=== PATIENT | male | born 1955 | race Caucasian/White ===

== ENCOUNTER 2016-11-29 13:56 | Emergency (ER) | payer OTHER ==
[2016-11-29] MEDS ORDERED: NS 1,000 ML IV ONE (14:14)
[2016-11-29] MEDS ORDERED: IOPAMIDOL (ISOVUE-300) 100 ML BTL IV ONE (14:27)
[2016-11-29] MEDS ORDERED: ONDANSETRON 4 MG/2 ML VIAL IVP ONE (14:33)
[2016-11-29] MEDS ORDERED: PROMETHAZINE HCL 25 MG/ML INJ IVP ONE (14:34)
--- NOTE | 2016-11-29 14:34 | EDPHY ---
H & P Stated Complaint: Pancreatitis flare up since 0600 Source: Patient, Old records Exam Limitations: No limitations - Personal History Current Tetanus/Diphtheria Vaccine: Yes Current Tetanus Diphtheria and Acellular Pertussis (TDAP): Yes Tetanus Vaccine Date: < 10 YEARS - Medical/Surgical History Hx Asthma: No Hx Chronic Respiratory Disease: No Hx Diabetes: No Hx Cardiac Disease: No Hx Renal Disease: No Hx Cirrhosis: Yes Hx Alcoholism: Yes Hx HIV/AIDS: No Hx Splenectomy or Spleen Trauma: No Other PMH: cyclic vomitting, HEP C/treatment completed, CHRONIC PANCREATITIS, AYDEE CONSTRICTURE, chronic back pain, TONSILLECTOMY, APPY, ORTHO SURGERY, CHOLECYSTECTOMY - Social History Smoking Status: Former smoker HPI/ROS: CHIEF COMPLAINT: abdominal pain, nausea vomiting HISTORY OF PRESENT ILLNESS: Patient reports 2-3 days history of epigastric abdominal pain. This is a moderate to severe pain. This is consistent with his history of chronic pancreatitis. Primarily in the epigastrium radiates across the upper quadrants. Worse with any palpation or movement. Worse with intake by mouth. No fever or chills. Nausea and vomiting. Diarrhea that resolved. No bloody stools or emesis. No trauma. Has a history of hepatitis C that has been treated. also has history of chronic pancreatitis of uncertain etiology. He denies any alcohol abuse. He denies hypertriglyceridemia. He denies any history of pancreatic pseudocyst. No other associated complaints or modifying factors. PREVIOUS ABDOMINAL SURGERIES/DIAGNOSES: Hep C status post treatment. Chronic pancreatitis. NPO: Last night, liquids only REVIEW OF SYSTEMS: Ten systems reviewed and are negative unless otherwise noted in the HPI EXAMINATION: General Appearance: Alert, no distress, unkempt Head: normocephalic, atraumatic Eyes: Pupils equal and round, no conjunctival pallor or injection ENT, Mouth: Mucous membranes moist. Uvula midline. No erythema or edema. Neck: Normal inspection, supple, non-tender Respiratory: Lungs are clear to auscultation . No wheezing, rhonchi or crackles. Cardiovascular: Regular rate and rhythm . No murmur. Pulses intact distally and symmetrically. Gastrointestinal: Abdomen is soft . Moderate tenderness to the epigastrium. Bowel sounds auscultated in all 4 quadrants.No tympany. No rigidity. He has guarding in the epigastrium. No CVA tenderness. Neurological: A&O, nonfocal, normal gait . Strength symmetric in all limbs. Skin: Warm and dry, no rash . No ecchymosis of the epigastrium or flanks. Extremities: Nontender, no pedal edema Psychiatric: Mood and affect normal DIFFERENTIAL DIAGNOSES: Including but not limited to Acute pancreatitis, chronic pancreatitis, enteritis, duodenitis, gastritis, colitis MDM: 2:20 p.m. abdominal pain consistent with the patient's history of chronic pancreatitis. Has worsened over the past few days. He has not been able to keep anything down. Constipation resolved. No bloody stools or emesis. No fever. No previous diagnosis of pancreatic pseudocyst. Laboratory studies, IV fluids and pain medication ordered. I will review his previous imaging further. 3:25 p.m. I have re-evaluated the patient. He is feeling much better after the IV morphine. Still receiving IV fluids. Laboratory studies are all within normal limits. Given his pain out of proportion to examination I will obtain a CT scan of the abdomen and pelvis to rule out pancreatitis or pseudocyst. He is comfortable with the plan. 3:50 p.m. notified by radiologist CT scan of the abdomen pelvis was unremarkable for evidence of pancreatitis. There is no pseudocyst. There is some fluid in the stomach. No obstruction. I will re-evaluate the patient. 4:05 p.m. I have re-evaluated the patient. He is feeling much better. I did offer admission for observation, IV fluid resuscitation. However he prefers to be discharged home. I do feel he is stable for discharge home as a CT scan reveals no acute findings, and laboratory studies are normal, this pain is improved. Upon discharge home is instructed to remain NPO of solids, and to intake water only this evening. He is to return to emergency department for return of his pain, any fever, or vomiting over the evening. Patient is comfortable with this plan. I have answered all his questions, and he will be discharged home in stable condition. ED Precautions: Worsening pain. Fever. Bloody stools. Bloody emesis. Constipation or diarrhea. SUPERVISION: This patient was independently evaluated without the aide of supervising physician. (Jefry Mojica) Constitutional: Initial Vital Signs Temperature (C) 37 C 11/29/16 13:57 Heart Rate 60 11/29/16 13:57 Respiratory Rate 18 11/29/16 13:57 Blood Pressure 166/75 H 11/29/16 13:57 O2 Sat (%) 94 11/29/16 13:57 O2 Delivery Mode Nasal Cannula O2 (L/minute) 2 Allergies/Adverse Reactions: codeine Allergy (Severe, Verified 03/12/16 14:29) Vomiting hydrocodone Allergy (Severe, Verified 03/12/16 14:29) Vomiting oxycodone [Oxycodone] Allergy (Severe, Verified 03/12/16 14:29) Vomiting clonazepam Allergy (Verified 11/29/16 14:01) tizanidine Allergy (Verified 11/29/16 14:01) topiramate Allergy (Verified 11/29/16 14:01) Home Medications: Medication Instructions Recorded Butalb/Acetaminophen/Caffeine 11/29/16 Dilaudid 4 mg (*) 11/29/16 GABAPENTIN 11/29/16 HYOSCYAMINE SULFATE 11/29/16 Ondansetron Odt [Zofran Odt 4 mg 4 mg PO Q6 PRN #12 tab 11/29/16 (*)] Promethazine HCl [Phenergan 25mg 25 mg PO Q8 PRN #12 tab 11/29/16 (*)] Medical Decision Making Other Provider: PHYSICIAN DOCUMENTATION: The patient was evaluated and managed by the Physician Team Facilitator. My co- signature indicates that I have reviewed this chart and I agree with the findings and plan of care as documented. I am the secondary supervising physician. (Amauri Dawson) - Data Points Laboratory Results: Laboratory Results 11/29/16 14:28 11/29/16 14:28 11/29/16 11/29/16 11/29/16 14:28 14:28 14:28 WBC 9.25 10^3/uL 10^3/uL (3.80-9.50) RBC 5.17 10^6/uL 10^6/uL (4.40-6.38) Hgb 16.5 g/dL g/dL (13.7-17.5) Hct 46.5 % % (40.0-51.0) MCV 89.9 fL fL (81.5-99.8) MCH 31.9 pg pg (27.9-34.1) MCHC 35.5 g/dL g/dL (32.4-36.7) RDW 12.3 % % (11.5-15.2) Plt Count 244 10^3/uL 10^3/uL (150-400) MPV 9.2 fL fL (8.7-11.7) Neut % (Auto) 89.7 % H % (39.3-74.2) Lymph % (Auto) 7.0 % L % (15.0-45.0) [place] % (Auto) 2.3 % L % (4.5-13.0) Eos % (Auto) 0.3 % L % (0.6-7.6) Baso % (Auto) 0.3 % % (0.3-1.7) Nucleat RBC Rel Count 0.0 % % (0.0-0.2) Absolute Neuts (auto) 8.29 10^3/uL H 10^3/uL (1.70-6.50) Absolute Lymphs (auto) 0.65 10^3/uL L 10^3/uL (1.00-3.00) Absolute Monos (auto) 0.21 10^3/uL L 10^3/uL (0.30-0.80) Absolute Eos (auto) 0.03 10^3/uL 10^3/uL (0.03-0.40) Absolute Basos (auto) 0.03 10^3/uL 10^3/uL (0.02-0.10) Absolute Nucleated RBC 0.00 10^3/uL 10^3/uL (0-0.01) Immature Gran % 0.4 % % (0.0-1.1) Immature Gran # 0.04 10^3/uL 10^3/uL (0.00-0.10) PT 14.1 SEC SEC (12.0-15.0) INR 1.10 (0.83-1.16) APTT 28.9 SEC SEC (23.0-38.0) Sodium 142 mEq/L mEq/L (134-144) Potassium 4.5 mEq/L mEq/L (3.5-5.2) Chloride 105 mEq/L mEq/L (97-110) Carbon Dioxide 23 mEq/l mEq/l (22-31) Anion Gap 14 mEq/L mEq/L (8-16) BUN 20 mg/dL mg/dL (7-23) Creatinine 0.9 mg/dL mg/dL (0.7-1.3) Estimated GFR > 60 Glucose 128 mg/dL H mg/dL (70-100) Calcium 10.0 mg/dL mg/dL (8.5-10.4) Total Bilirubin 1.0 mg/dL mg/dL (0.1-1.4) Conjugated Bilirubin 0.5 mg/dL mg/dL (0.0-0.5) Unconjugated Bilirubin 0.5 mg/dL mg/dL (0.0-1.1) AST 27 IU/L IU/L (17-59) ALT 22 IU/L IU/L (21-72) Alkaline Phosphatase 82 IU/L IU/L (38-126) Total Protein 8.0 g/dL g/dL (6.3-8.2) Albumin 4.8 g/dL g/dL (3.5-5.0) Lipase 37.0 IU/L IU/L (23-300) Medications Given: Discontinued Medications Sodium Chloride (Ns) 1,000 mls @ 0 mls/hr IV ONCE ONE PRN Reason: Wide Open Stop: 11/29/16 14:15 Last Admin: 11/29/16 14:33 Dose: 1,000 mls Morphine Sulfate (Morphine) 8 mg IVP EDNOW ONE Stop: 11/29/16 14:34 Last Admin: 11/29/16 15:04 Dose: 8 mg Morphine Sulfate (Morphine) 4 mg IVP EDNOW ONE Stop: 11/29/16 16:03 Last Admin: 11/29/16 16:12 Dose: 4 mg Ondansetron HCl (Zofran) 4 mg IVP EDNOW ONE Stop: 11/29/16 14:34 Last Admin: 11/29/16 15:04 Dose: 4 mg Promethazine HCl (Phenergan) 12.5 mg IVP ONCE ONE Stop: 11/29/16 14:35 Last Admin: 11/29/16 15:03 Dose: 12.5 mg Departure - Departure Disposition: Home, Routine, Self-Care Clinical Impression: Acute abdominal pain Chronic pancreatitis Qualifiers: Pancreatitis type: unspecified pancreatitis type Qualified Code(s): K86.1 - Other chronic pancreatitis Nausea & vomiting Qualifiers: Vomiting type: unspecified Vomiting Intractability: non-intractable Qualified Code(s): R11.2 - Nausea with vomiting, unspecified Condition: Good Instructions: Pancreatitis (ED) Additional Instructions: Follow-up with primary care physician. Return to ER for fever, return of abdominal pain, vomiting Referrals: John Xiao MD [Primary Care Provider] - As per Instructions Prescriptions: Ondansetron Odt [Zofran Odt 4 mg (*)] 4 mg PO Q6 PRN #12 tab PRN Reason: Nausea/Vomiting, Use 1st Promethazine HCl [Phenergan 25mg (*)] 25 mg PO Q8 PRN #12 tab PRN Reason: Nausea/Vomiting, Use 1st
[2016-11-29 14:45] LABS: % IMMATURE GRANULYOCYTES 0.4 % (0.0-1.1); ABSOLUTE IMMATURE GRANULOCYTES 0.04 10^3/uL (0.00-0.10); ADD DIFF? NO; ADD MORPH? NO; ADD SCAN? NO; ATYPICAL LYMPHOCYTE FLAG 0 (0-99); FRAGMENT RBC FLAG 0 (0-99); HEMATOCRIT 46.5 % (40.0-51.0); HEMOGLOBIN 16.5 g/dL (13.7-17.5); LEFT SHIFT FLG 0 (0-99); LIPEMIA HEMOLYSIS FLAG 90 (0-99); MEAN CELL HEMOGLOBIN 31.9 pg (27.9-34.1); MEAN CELL HEMOGLOBIN CONCENTR. 35.5 g/dL (32.4-36.7); MEAN CELL VOLUME 89.9 fL (81.5-99.8); MEAN PLATELET VOLUME 9.2 fL (8.7-11.7); PLATELET CLUMPS FLAG 0 (0-99); PLATELET COUNT 244 10^3/uL (150-400); RED BLOOD CELL COUNT 5.17 10^6/uL (4.40-6.38); RED CELL DISTRIBUTION WIDTH 12.3 % (11.5-15.2)
[2016-11-29 14:53] LABS: APTT 28.9 SEC (23.0-38.0); INR 1.1 (0.83-1.16); PROTIME(PATIENT) 14.1 SEC (12.0-15.0)
[2016-11-29 15:06] LABS: ALANINE AMINOTRANSFERASE 22 IU/L (21-72); ALBUMIN 4.8 g/dL (3.5-5.0); ALKALINE PHOSPHATASE 82 IU/L (38-126); ANION GAP 14 mEq/L (8-16); ASPARTATE AMINOTRANSFERASE 27 IU/L (17-59); BILIRUBIN-CONJUGATED 0.5 mg/dL (0.0-0.5); BILIRUBIN-UNCONJUGATED 0.5 mg/dL (0.0-1.1); CARBON DIOXIDE 23 mEq/l (22-31); CHLORIDE 105 mEq/L (97-110); CREATININE 0.9 mg/dL (0.7-1.3); GLOMERULAR FILTRATION RATE > 60; GLUCOSE 128 mg/dL (70-100); POTASSIUM 4.5 mEq/L (3.5-5.2); SODIUM 142 mEq/L (134-144)
[2016-11-29 16:04] VITALS: RESP 16; O2SAT 94
[2016-11-29 17:04] VITALS: BP 131/68; PULSE 71; TEMP 99
== END 2016-11-29 17:04 | disposition home or self-care (01) ==
DX: K86.1 Other chronic pancreatitis (principal); Z87.891 Personal history of nicotine dependence; Z90.49 Acquired absence of other specified parts of digestive tract
CPT/HCPCS: 96374; J2405; J2550; Q9967

== ENCOUNTER 2017-01-19 09:54 | Emergency (ER) | payer OTHER ==
[~2017-01-19 09:54] MED LIST: HYDROmorphONE/DILAUDID 1 MG/ML SYR IVP ONE
[2017-01-19] MEDS ORDERED: ONDANSETRON 4 MG/2 ML VIAL ONE (10:17)
[2017-01-19] MEDS ORDERED: ONDANSETRON 4 MG/2 ML VIAL IVP ONE (10:26)
[2017-01-19] MEDS ORDERED: NS 1,000 ML IV ONE (10:26)
[2017-01-19] MEDS ORDERED: HYDROmorphONE/DILAUDID 1 MG/ML SYR IVP ONE ×2 (10:35→11:50)
[2017-01-19] MEDS ORDERED: HALOPERIDOL LACT 5 MG/ML INJ IVP ONE (10:36)
[2017-01-19 10:58] LABS: % IMMATURE GRANULYOCYTES 0.2 % (0.0-1.1); ABSOLUTE IMMATURE GRANULOCYTES 0.02 10^3/uL (0.00-0.10); ADD DIFF? NO; ADD MORPH? NO; ADD SCAN? NO; ATYPICAL LYMPHOCYTE FLAG 10 (0-99); FRAGMENT RBC FLAG 0 (0-99); HEMATOCRIT 48.8 % (40.0-51.0); HEMOGLOBIN 16.8 g/dL (13.7-17.5); LEFT SHIFT FLG 10 (0-99); LIPEMIA HEMOLYSIS FLAG 90 (0-99); MEAN CELL HEMOGLOBIN 30.7 pg (27.9-34.1); MEAN CELL HEMOGLOBIN CONCENTR. 34.4 g/dL (32.4-36.7); MEAN CELL VOLUME 89.1 fL (81.5-99.8); MEAN PLATELET VOLUME 9.7 fL (8.7-11.7); PLATELET CLUMPS FLAG 0 (0-99); PLATELET COUNT 218 10^3/uL (150-400); RED BLOOD CELL COUNT 5.48 10^6/uL (4.40-6.38); RED CELL DISTRIBUTION WIDTH 12.3 % (11.5-15.2)
[2017-01-19 11:14] LABS: ALANINE AMINOTRANSFERASE 35 IU/L (21-72); ALBUMIN 4.7 g/dL (3.5-5.0); ALKALINE PHOSPHATASE 106 IU/L (38-126); ANION GAP 9 mEq/L (8-16); ASPARTATE AMINOTRANSFERASE 24 IU/L (17-59); BILIRUBIN,TOTAL 0.8 mg/dL (0.1-1.4); BILIRUBIN-CONJUGATED 0.3 mg/dL (0.0-0.5); BILIRUBIN-UNCONJUGATED 0.5 mg/dL (0.0-1.1); CALCIUM 10.2 mg/dL (8.5-10.4); CARBON DIOXIDE 23 mEq/l (22-31); CHLORIDE 107 mEq/L (97-110); CREATININE 0.9 mg/dL (0.7-1.3); GLOMERULAR FILTRATION RATE > 60; GLUCOSE 126 mg/dL (70-100); POTASSIUM 4.5 mEq/L (3.5-5.2); SODIUM 139 mEq/L (134-144)
[2017-01-19] MEDS ORDERED: HYDROmorphONE/DILAUDID 1 MG/ML SYR ONE ×2 (11:45→11:58)
--- NOTE | 2017-01-19 12:16 | EDPHY ---
H & P Stated Complaint: ight sided abdominal pain. Cyclic vomiting. Time Seen by Provider: 01/19/17 10:11 HPI/ROS: CHIEF COMPLAINT: Abdominal pain HISTORY OF PRESENT ILLNESS: 61-year-old male presents emergency department with acute on chronic epigastric abdominal pain with nausea and vomiting. Patient has a history of chronic pancreatitis and cyclic vomiting syndrome. He sees a folding machine tender regularly and Dr. Xiao. Patient has a cocktail medications that usually helps his symptoms at home although this morning he could not keep them down. Patient reports there is nothing new about his pain, he denies fevers. No diarrhea. No blood in his vomit. No bloody stools. Patient has a history of hepatitis C that has been treated. He denies alcohol abuse. No other associated complaints or modifying factors. REVIEW OF SYSTEMS: A comprehensive 10 point review of systems is otherwise negative aside from elements mentioned in the history of present illness. Source: Patient Exam Limitations: No limitations - Personal History Current Tetanus/Diphtheria Vaccine: Yes Current Tetanus Diphtheria and Acellular Pertussis (TDAP): Yes Tetanus Vaccine Date: < 10 YEARS - Medical/Surgical History Hx Asthma: No Hx Chronic Respiratory Disease: No Hx Diabetes: No Hx Cardiac Disease: No Hx Renal Disease: No Hx Cirrhosis: Yes Hx Alcoholism: Yes Hx HIV/AIDS: No Hx Splenectomy or Spleen Trauma: No Other PMH: cyclic vomitting, HEP C/treatment completed, CHRONIC PANCREATITIS, AYDEE CONSTRICTURE, chronic back pain, TONSILLECTOMY, APPY, ORTHO SURGERY, CHOLECYSTECTOMY - Social History Smoking Status: Former smoker - Physical Exam Exam: Physical Exam Gen: Alert and Oriented, grimacing HEENT: PERRL, moist mucous membranes NECK: no meningismus CV: regular rate and regular rhythm PULM: CTAB, no wheezes ABDOMEN: Soft, mild diffuse tenderness to palpation, BS present BACK: No CVA tenderness NEURO: Neurologically grossly intact EXTREMITIES: normal appearing SKIN: no rash or break in skin on exposed skin PSYCH: answers questions appropriately. Constitutional: Initial Vital Signs Temperature (C) 36.6 C 01/19/17 09:56 Heart Rate 41 L 01/19/17 09:56 Respiratory Rate 14 01/19/17 09:56 Blood Pressure 152/84 H 01/19/17 09:56 O2 Sat (%) 99 01/19/17 09:56 O2 Delivery Mode Room Air Allergies/Adverse Reactions: codeine Allergy (Severe, Verified 03/12/16 14:29) Vomiting hydrocodone Allergy (Severe, Verified 03/12/16 14:29) Vomiting oxycodone [Oxycodone] Allergy (Severe, Verified 03/12/16 14:29) Vomiting clonazepam Allergy (Verified 11/29/16 14:01) tizanidine Allergy (Verified 11/29/16 14:01) topiramate Allergy (Verified 11/29/16 14:01) Home Medications: Medication Instructions Recorded Butalb/Acetaminophen/Caffeine 11/29/16 Dilaudid 4 mg (*) 11/29/16 GABAPENTIN 11/29/16 HYOSCYAMINE SULFATE 11/29/16 Ondansetron Odt [Zofran Odt 4 mg 4 mg PO Q6 PRN #12 tab 11/29/16 (*)] Promethazine HCl [Phenergan 25mg 25 mg PO Q8 PRN #12 tab 11/29/16 (*)] Promethazine HCl 25 mg RC Q8HRS PRN #10 supp.rect 01/19/17 Medical Decision Making ED Course/Re-evaluation: IV established, CBC, chemistry panel, lipase and LFTs ordered. Patient is given Zofran and 1 mg of IV Dilaudid. On re-evaluation the patient continues with nausea and abdominal pain. He is given 5 mg of Haldol and 25 mg of Benadryl IV. He is also given a 2nd mg of Dilaudid. On re-evaluation the patient reports feeling much improved. He does feel like his pain is beginning to worsened a bit, he is given another dose of IV Dilaudid. Repeat abdominal exam shows no peritoneal signs. Patient reports feeling better and feels comfortable being discharged home. I did offer admission to the hospital in the patient reports he would rather manage this at home. He agrees to return for any worsening symptoms, new symptoms or concerns. Patient is discharged home with a prescription for Phenergan suppositories. Differential Diagnosis: The differential diagnosis for the patient's abdominal pain included but was not limited to [appendicitis, cholecystitis, hernias, Pancreatitis, cyclic vomiting syndrome, gastritis, and urinary tract infection. - Data Points Laboratory Results: Laboratory Results 01/19/17 Unknown 01/19/17 Unknown 04/21/17 04/21/17 Unknown Unknown WBC 8.63 10^3/uL 10^3/uL (3.80-9.50) RBC 5.48 10^6/uL 10^6/uL (4.40-6.38) Hgb 16.8 g/dL g/dL (13.7-17.5) Hct 48.8 % % (40.0-51.0) MCV 89.1 fL fL (81.5-99.8) MCH 30.7 pg pg (27.9-34.1) MCHC 34.4 g/dL g/dL (32.4-36.7) RDW 12.3 % % (11.5-15.2) Plt Count 218 10^3/uL 10^3/uL (150-400) MPV 9.7 fL fL (8.7-11.7) Neut % (Auto) 79.3 % H % (39.3-74.2) Lymph % (Auto) 11.8 % L % (15.0-45.0) [place] % (Auto) 5.1 % % (4.5-13.0) Eos % (Auto) 2.9 % % (0.6-7.6) Baso % (Auto) 0.7 % % (0.3-1.7) Nucleat RBC Rel Count 0.0 % % (0.0-0.2) Absolute Neuts (auto) 6.84 10^3/uL H 10^3/uL (1.70-6.50) Absolute Lymphs (auto) 1.02 10^3/uL 10^3/uL (1.00-3.00) Absolute Monos (auto) 0.44 10^3/uL 10^3/uL (0.30-0.80) Absolute Eos (auto) 0.25 10^3/uL 10^3/uL (0.03-0.40) Absolute Basos (auto) 0.06 10^3/uL 10^3/uL (0.02-0.10) Absolute Nucleated RBC 0.00 10^3/uL 10^3/uL (0-0.01) Immature Gran % 0.2 % % (0.0-1.1) Immature Gran # 0.02 10^3/uL 10^3/uL (0.00-0.10) Sodium 139 mEq/L mEq/L (134-144) Potassium 4.5 mEq/L mEq/L (3.5-5.2) Chloride 107 mEq/L mEq/L (97-110) Carbon Dioxide 23 mEq/l mEq/l (22-31) Anion Gap 9 mEq/L mEq/L (8-16) BUN 18 mg/dL mg/dL (7-23) Creatinine 0.9 mg/dL mg/dL (0.7-1.3) Estimated GFR > 60 Glucose 126 mg/dL H mg/dL (70-100) Calcium 10.2 mg/dL mg/dL (8.5-10.4) Total Bilirubin 0.8 mg/dL mg/dL (0.1-1.4) Conjugated Bilirubin 0.3 mg/dL mg/dL (0.0-0.5) Unconjugated Bilirubin 0.5 mg/dL mg/dL (0.0-1.1) AST 24 IU/L IU/L (17-59) ALT 35 IU/L IU/L (21-72) Alkaline Phosphatase 106 IU/L IU/L (38-126) Total Protein 8.0 g/dL g/dL (6.3-8.2) Albumin 4.7 g/dL g/dL (3.5-5.0) Lipase 181.0 IU/L IU/L (23-300) Medications Given: Discontinued Medications Diphenhydramine HCl (Benadryl Injection) 25 mg IVP EDNOW ONE Stop: 01/19/17 10:37 Last Admin: 01/19/17 10:42 Dose: 25 mg Haloperidol Lactate (Haldol Injection) 5 mg IVP EDNOW ONE Stop: 01/19/17 10:37 Last Admin: 01/19/17 10:42 Dose: 5 mg Hydromorphone HCl (Dilaudid) 1 mg IVP EDNOW ONE Stop: 01/19/17 10:36 Last Admin: 01/19/17 10:41 Dose: 1 mg Hydromorphone HCl (Dilaudid) 1 mg IVP EDNOW ONE Stop: 01/19/17 08:01 Last Admin: 01/19/17 11:50 Dose: 1 mg Hydromorphone HCl (Dilaudid) 1 mg IVP EDNOW ONE Stop: 01/19/17 11:51 Last Admin: 01/19/17 12:00 Dose: 1 mg Sodium Chloride (Ns) 1,000 mls @ 0 mls/hr IV ONCE ONE PRN Reason: Wide Open Stop: 01/19/17 10:27 Last Admin: 01/19/17 10:27 Dose: 1,000 mls Ondansetron HCl (Zofran) 4 mg IVP EDNOW ONE Stop: 01/19/17 10:27 Last Admin: 01/19/17 10:28 Dose: 4 mg Departure - Departure Disposition: Home, Routine, Self-Care Clinical Impression: Abdominal pain, chronic, right upper quadrant Nausea & vomiting Qualifiers: Vomiting type: cyclical vomiting Vomiting Intractability: non-intractable Qualified Code(s): G43.A0 - Cyclical vomiting, not intractable Condition: Good Instructions: Chronic Abdominal Pain (ED) Additional Instructions: Take your medications as prescribed. Follow up as scheduled with the folding machine tender. Return to the emergency department for worsening symptoms, new symptoms or concerns. Referrals: John Xiao MD [Primary Care Provider] - As per Instructions Prescriptions: Promethazine HCl 25 mg RC Q8HRS PRN #10 supp.rect PRN Reason: Nausea/Vomiting, Can'T Take Po
[2017-01-19 13:05] VITALS: RESP 18
[2017-01-19 14:04] VITALS: BP 143/64; PULSE 75; TEMP 98.6; O2SAT 96
== END 2017-01-19 14:02 | disposition home or self-care (01) ==
DX: R10.11 Right upper quadrant pain (principal); G89.29 Other chronic pain; G43.A0 Cyclical vomiting, in migraine, not intractable; Z87.891 Personal history of nicotine dependence; Z90.49 Acquired absence of other specified parts of digestive tract
CPT/HCPCS: 96374; J1170; J1200; J2405

== ENCOUNTER 2017-02-07 19:47 | Inpatient (IN) | payer OTHER ==
[2017-02-07] MEDS ORDERED: ONDANSETRON 4 MG/2 ML VIAL ONE (20:10)
[2017-02-07] MEDS ORDERED: HYDROmorphONE/DILAUDID 1 MG/ML SYR ONE (20:11)
[2017-02-07] MEDS ORDERED: NS 1,000 ML IV ONE ×2 (20:14→20:28)
[2017-02-07] MEDS ORDERED: HYDROmorphONE/DILAUDID 1 MG/ML SYR IVP ONE ×2 (20:19→20:42)
[2017-02-07] MEDS ORDERED: ONDANSETRON 4 MG/2 ML VIAL IVP ONE (20:19)
--- NOTE | 2017-02-07 20:22 | EDPHY ---
H & P Time Seen by Provider: 02/07/17 20:18 HPI/ROS: CHIEF COMPLAINT: Abdominal pain, vomiting HISTORY OF PRESENT ILLNESS: This patient is a 61 year old male with history of cyclic vomiting and pancreatitis who presents to the Emergency Department complaining of intermittent epigastric and RUQ abdominal pain and associated nausea and vomiting beginning one week prior to arrival. He had labs drawn by his PCP on last week confirmed acute exacerbation of his chronic pancreatitis. Today, he presents to the ED because of intractable vomiting and severe (10/10) pain. He describes this episode as similar to prior exacerbations of his pancreatitis. He denies bowel changes, fever or chills, or any additional complaints. REVIEW OF SYSTEMS: Constitutional: +rapid weight loss, no fever, no chills Eyes: No visual changes ENT: No sore throat Respiratory: No cough, no shortness of breath Cardiac: No chest pain Gastrointestinal: As above Genitourinary: No hematuria, no dysuria Musculoskeletal: No leg pain or swelling Skin: No rash Neurological: No headache, no numbness, no weakness Psychiatric: No depression Past Medical/Surgical History: Prior medical records reviewed by myself, including most recent visit for same complaint on 01/19/2017. PMH includes: Chronic pancreatitis, cyclic vomiting, history of hepatitis C Social History: Former smoker Smoking Status: Former smoker Physical Exam: General Appearance: Alert, no distress Eyes: Pupils equal and round, no conjunctival pallor or injection ENT, Mouth: Mucous membranes moist Neck: Normal inspection Respiratory: Lungs are clear to auscultation Cardiovascular: Regular rate and rhythm Gastrointestinal: Abdomen is soft, RUQ and epigastric tenderness Neurological: A&O, nonfocal, normal gait Skin: Warm and dry, no rash Extremities: Nontender, no pedal edema Psychiatric: Mood and affect normal Constitutional: Initial Vital Signs Temperature (C) 37.7 C 02/07/17 19:59 Heart Rate 83 02/07/17 19:59 Respiratory Rate 16 02/07/17 19:59 Blood Pressure 140/59 H 02/07/17 19:59 O2 Sat (%) 95 02/07/17 19:59 O2 Delivery Mode Room Air Allergies/Adverse Reactions: codeine Allergy (Severe, Verified 03/12/16 14:29) Vomiting hydrocodone Allergy (Severe, Verified 03/12/16 14:29) Vomiting oxycodone [Oxycodone] Allergy (Severe, Verified 03/12/16 14:29) Vomiting clonazepam Allergy (Verified 11/29/16 14:01) tizanidine Allergy (Verified 11/29/16 14:01) topiramate Allergy (Verified 11/29/16 14:01) Home Medications: Medication Instructions Recorded Acet/Caffeine/Buta Fioricet 1 - 2 each PO Q4 PRN MDD 4 tabs in 02/07/17 [Fioricet (*)] 24 hours Calcium Carbonate [Calcium] 1,000 mg PO DAILY 02/07/17 Diazepam [Valium 10 MG (*)] 10 mg PO HS PRN 02/07/17 Duloxetine HCl [Cymbalta] 30 mg PO DAILY 02/07/17 Gabapentin [Neurontin 300 MG (*)] 600 mg PO HS 02/07/17 HYDROmorphone HCL [Dilaudid 4 mg 2 - 4 mg PO Q4-6PRN PRN 02/07/17 (*)] Herbals/Supplements -Info Only 1 ea PO DAILY 02/07/17 LORAZEPAM [Ativan] 1 ml PO BID PRN MDD 45cc per month 02/07/17 Magnesium Oxide [Magnesium Oxide 500 mg PO DAILY 02/07/17 500 mg] Naloxone HCl 1 mg IJ AD PRN 02/07/17 Ondansetron Odt [Zofran Odt 4 mg 4 - 8 mg PO Q8H PRN 02/07/17 (*)] Promethazine HCl [Phenergan 25mg 25 mg PO BID PRN 02/07/17 (*)] Tamsulosin HCl [Flomax 0.4 MG (*)] 0.4 mg PO DAILY 02/07/17 rOPINIRole HCL [Ropinirole HCl] 4 - 12 mg PO HS PRN 02/07/17 Medical Decision Making ED Course/Re-evaluation: This 61 [id number] presents with [id number] pancreatitis as confirmed by labs yesterday with lipase elevated at 1025. He complains of severe RUQ and epigastric pain with intractable vomiting, a similar presentation to previous visits for pancreatitis. Will proceed with repeat labs and plan for admission. IV established. 2mg Dilaudid, 4mg Zofran, and 2L IV NS administered. Labs reviewed: Lipase within normal limits today. 2108: On reevaluation, the patient continues to complain of abdominal discomfort at severity 9/10. He is mildly drowsy. Plan for admission. 40mg IV Protonix administered. 2110: Consultation with Dr. Lu Nevarez, hospitalist, who accepts admission. Abdominal exam remains unchanged. I suspect this patient has a pancreatitis, given elevated lipase yesterday. In any case, he does not have an acute abdomen and abdominal imaging is not indicated in this patient. Differential Diagnosis: Differential diagnosis includes though it is not limited to appendicitis, cholecystitis, diverticulitis, pyelonephritis, bowel perforation, small bowel obstruction. - Data Points Laboratory Results: Laboratory Results 02/07/17 20:10 02/07/17 20:10 02/07/17 02/07/17 20:10 20:10 WBC 6.28 10^3/uL 10^3/uL (3.80-9.50) RBC 5.05 10^6/uL 10^6/uL (4.40-6.38) Hgb 15.9 g/dL g/dL (13.7-17.5) Hct 45.2 % % (40.0-51.0) MCV 89.5 fL fL (81.5-99.8) MCH 31.5 pg pg (27.9-34.1) MCHC 35.2 g/dL g/dL (32.4-36.7) RDW 12.5 % % (11.5-15.2) Plt Count 204 10^3/uL 10^3/uL (150-400) MPV 9.5 fL fL (8.7-11.7) Neut % (Auto) 86.0 % H % (39.3-74.2) Lymph % (Auto) 8.3 % L % (15.0-45.0) [place] % (Auto) 4.8 % % (4.5-13.0) Eos % (Auto) 0.2 % L % (0.6-7.6) Baso % (Auto) 0.2 % L % (0.3-1.7) Nucleat RBC Rel Count 0.0 % % (0.0-0.2) Absolute Neuts (auto) 5.41 10^3/uL 10^3/uL (1.70-6.50) Absolute Lymphs (auto) 0.52 10^3/uL L 10^3/uL (1.00-3.00) Absolute Monos (auto) 0.30 10^3/uL 10^3/uL (0.30-0.80) Absolute Eos (auto) 0.01 10^3/uL L 10^3/uL (0.03-0.40) Absolute Basos (auto) 0.01 10^3/uL L 10^3/uL (0.02-0.10) Absolute Nucleated RBC 0.00 10^3/uL 10^3/uL (0-0.01) Immature Gran % 0.5 % % (0.0-1.1) Immature Gran # 0.03 10^3/uL 10^3/uL (0.00-0.10) Sodium 141 mEq/L mEq/L (134-144) Potassium 4.1 mEq/L mEq/L (3.5-5.2) Chloride 106 mEq/L mEq/L (97-110) Carbon Dioxide 23 mEq/l mEq/l (22-31) Anion Gap 12 mEq/L mEq/L (8-16) BUN 15 mg/dL mg/dL (7-23) Creatinine 0.8 mg/dL mg/dL (0.7-1.3) Estimated GFR > 60 Glucose 120 mg/dL H mg/dL (70-100) Calcium 9.8 mg/dL mg/dL (8.5-10.4) Total Bilirubin 0.9 mg/dL D mg/dL (0.1-1.4) Conjugated Bilirubin 0.4 mg/dL mg/dL (0.0-0.5) Unconjugated Bilirubin 0.5 mg/dL mg/dL (0.0-1.1) AST 33 IU/L IU/L (17-59) ALT 42 IU/L IU/L (21-72) Alkaline Phosphatase 91 IU/L IU/L (38-126) Total Protein 7.2 g/dL g/dL (6.3-8.2) Albumin 4.5 g/dL g/dL (3.5-5.0) Lipase 169.0 IU/L IU/L (23-300) Medications Given: Discontinued Medications Hydromorphone HCl (Dilaudid) 1 mg IVP EDNOW ONE Stop: 02/07/17 20:20 Last Admin: 02/07/17 20:22 Dose: 1 mg Hydromorphone HCl (Dilaudid) 1 mg IVP EDNOW ONE Stop: 02/07/17 20:43 Last Admin: 02/07/17 21:12 Dose: Not Given Sodium Chloride (Ns) 1,000 mls @ 0 mls/hr IV ONCE ONE PRN Reason: Wide Open Stop: 02/07/17 20:15 Last Admin: 02/07/17 20:15 Dose: 1,000 mls Sodium Chloride (Ns) 1,000 mls @ 0 mls/hr IV ONCE ONE PRN Reason: Wide Open Stop: 02/07/17 20:29 Last Admin: 02/07/17 20:39 Dose: 1,000 mls Ondansetron HCl (Zofran) 4 mg IVP EDNOW ONE Stop: 02/07/17 20:20 Last Admin: 02/07/17 20:22 Dose: 4 mg Pantoprazole Sodium (Protonix) 40 mg IVP EDNOW ONE Stop: 02/07/17 21:09 Last Admin: 02/07/17 21:24 Dose: 40 mg Departure - Departure Disposition: [facility] Inpatient Acute Clinical Impression: Pancreatitis, acute Qualifiers: Pancreatitis type: other Acute pancreatitis complication: unspecified Qualified Code(s): K85.80 - Other acute pancreatitis without necrosis or infection Condition: Fair Report Scribed for: Anastacia Stewart Report Scribed by: Anuja Soria Date of Report: 02/07/17 Time of Report: 20:21 Physician Review and Approval Statement: 02/07/17 20:21 Portions of this note were transcribed by a medical records assistant. I personally performed a history, physical exam, medical decision making, and confirmed accuracy of information the transcribed note.
[2017-02-07 20:35] LABS: % IMMATURE GRANULYOCYTES 0.5 % (0.0-1.1); ABSOLUTE IMMATURE GRANULOCYTES 0.03 10^3/uL (0.00-0.10); ADD DIFF? NO; ADD MORPH? NO; ADD SCAN? NO; ATYPICAL LYMPHOCYTE FLAG 0 (0-99); FRAGMENT RBC FLAG 0 (0-99); HEMATOCRIT 45.2 % (40.0-51.0); HEMOGLOBIN 15.9 g/dL (13.7-17.5); LEFT SHIFT FLG 10 (0-99); LIPEMIA HEMOLYSIS FLAG 90 (0-99); MEAN CELL HEMOGLOBIN 31.5 pg (27.9-34.1); MEAN CELL HEMOGLOBIN CONCENTR. 35.2 g/dL (32.4-36.7); MEAN CELL VOLUME 89.5 fL (81.5-99.8); MEAN PLATELET VOLUME 9.5 fL (8.7-11.7); PLATELET CLUMPS FLAG 0 (0-99); PLATELET COUNT 204 10^3/uL (150-400); RED BLOOD CELL COUNT 5.05 10^6/uL (4.40-6.38); RED CELL DISTRIBUTION WIDTH 12.5 % (11.5-15.2)
[2017-02-07 20:45] LABS: ALANINE AMINOTRANSFERASE 42 IU/L (21-72); ALBUMIN 4.5 g/dL (3.5-5.0); ALKALINE PHOSPHATASE 91 IU/L (38-126); ANION GAP 12 mEq/L (8-16); ASPARTATE AMINOTRANSFERASE 33 IU/L (17-59); BILIRUBIN,TOTAL 0.9 mg/dL (0.1-1.4); BILIRUBIN-CONJUGATED 0.4 mg/dL (0.0-0.5); BILIRUBIN-UNCONJUGATED 0.5 mg/dL (0.0-1.1); CALCIUM 9.8 mg/dL (8.5-10.4); CARBON DIOXIDE 23 mEq/l (22-31); CHLORIDE 106 mEq/L (97-110); CREATININE 0.8 mg/dL (0.7-1.3); GLOMERULAR FILTRATION RATE > 60; GLUCOSE 120 mg/dL (70-100); POTASSIUM 4.1 mEq/L (3.5-5.2); SODIUM 141 mEq/L (134-144); TOTAL PROTEIN 7.2 g/dL (6.3-8.2)
[2017-02-07] MEDS ORDERED: fentaNYL 100 MCG/2 ML INJ ONE (20:58)
[2017-02-07] MEDS ORDERED: PANTOPRAZOLE SODIUM 40 MG VIAL IVP ONE (21:08)
[2017-02-07] MEDS ORDERED: ONDANSETRON 4 MG/2 ML VIAL IVP PRN (21:46)
[2017-02-07] MEDS ORDERED: ACETAMINOPHEN 325 MG TAB PO PRN (21:46)
[2017-02-07] MEDS ORDERED: LORazepam 1 MG TAB PO PRN (22:15)
[2017-02-07] MEDS ORDERED: LORazepam 1 MG/0.5 ML UDSYR PO PRN (22:15)
[2017-02-07] MEDS: DIAZEPAM 5 MG TAB PO PRN (22:52)
[2017-02-07] MEDS: HYDROmorphONE/DILAUDID 1 MG/ML SYR IVP PRN (22:52)
[2017-02-07] MEDS: GABAPENTIN 300 MG CAP PO SCH (22:55)
[2017-02-07] MEDS: NS 1,000 ML IV SCH (22:56)
--- NOTE | 2017-02-07 23:04 | GHP ---
[f rep st] HISTORY AND PHYSICAL DATE OF ADMISSION: 02/07/2017 CHIEF COMPLAINT: Ptfyv-oj-kazodbk abdominal pain. HISTORY OF PRESENT ILLNESS: The patient is a 61-year-old male with history of functional abdominal pain, chronic pancreatitis, hepatitis C status post treatment, presenting with vomiting and increased abdominal pain today. Started vomiting this morning at 7 a.m. and has had up to 7 episodes, nonbilious without hematemesis. When episodes of vomiting occur, he has drenching sweats with chills. He has increased weakness and just feels exhausted. Per him and his , he has lost 20 pounds in the past 2 months. He is followed closely by his PCP, Dr. Xiao and GI of the [facility]. He has under gone extensive GI evaluation per patient with no clear etiology. Lipase on 02/05/2017 was elevated to 1000. He has a history of drinking but quit 12 years ago. No fevers or diarrhea. No ill contacts. REVIEW OF SYSTEMS: I completed a 10-point review of systems, negative except as noted in HPI. PAST MEDICAL HISTORY: 1. Functional abdominal pain, followed by GI of the [facility]. 2. Chronic pancreatitis. 3. Hepatitis C, status post treatment. 4. Dupuytren stricture. 5. Chronic back pain. 6. Depression. 7. Restless leg syndrome. PAST SURGICAL HISTORY: 1. Tonsillectomy. 2. Appendectomy. 3. Right knee x2. 4. Cholecystectomy. 5. Right shoulder. FAMILY HISTORY: Mother with colon cancer. Father with Parkinson's. SOCIAL HISTORY: Quit alcohol 12 years ago. Lives in [place] with his . Smokes a quarter of marijuana weekly. Has not smoked cigarettes in 3 days. ALLERGIES: Codeine, hydrocodone, oxycodone, clonazepam, , Topamax. HOME MEDICATIONS: Ropinirole 4-12 mg p.o. at bedtime p.r.n. tamsulosin 0.4 mg daily. Phenergan 25 mg twice daily p.r.n. Zofran as needed. Ativan 1 mg p.r.n. Dilaudid 2-4 mg p.o. q.4-6 hours p.r.n. Gabapentin 600 mg at bedtime. Fluoxetine 30 mg daily. Diazepam 10 mg at bedtime p.r.n. Fioricet as needed. PHYSICAL EXAMINATION: VITAL SIGNS: Temperature 36.7, blood pressure 140/59, heart rate 80s, respiratory rate 95% on room air. GENERAL: The patient appears uncomfortable, curled up in bed on his side. HEENT: PERRLA. Dry mucous membranes. Temporal wasting. CV: Regular rate and rhythm. No murmurs , gallops, rubs. LUNGS: Clear to auscultation bilaterally. ABDOMEN: Soft, nondistended, diffuse tenderness greater in epigastrium and right upper quadrant. Positive bowel sounds. : No suprapubic tenderness. MUSCULOSKELETAL: 5/5 upper and lower extremity strength. NEUROLOGIC: 2-12 intact. PSYCHIATRIC: Alert and oriented x3. Uncomfortable. Flat affect. LABORATORY DATA: Sodium 141, potassium 4.1, chloride 106, carbon dioxide 23, BUN 15, creatinine 0.8, glucose 120. LFTs within normal. Lipase is 169. ASSESSMENT/PLAN: 1. Hrbnm-bw-zksfiot abdominal pain: has had chronic pain for several years. He is followed closely by GI of the [facility]. Per he and , he has had extensive studies, including endoscopy, capsule study without clear etiology. Lipase is normal here today, though it was elevated to 1000 two days ago. Will check an abdominal ultrasound. Control pain with IV opioids with caution with low BP in ER. Would consider consulting GI in the morning for any further evaluation options. 2. Chronic pancreatitis: The patient has history of drinking but quit 12 years ago. Again, talk with GI in the morning. Lipase normal today. 3. Vomiting: query cyclic vomiting syndrome since he uses marijuana regularly. 4. History of hepatitis C: Status post treatment. 5. Chronic back pain: cont home medications 6. Depression: may be contributing to somatic pain. Recently started on an antidepressant 7. Restless leg syndrome: ropinirole. 8. Benign prostatic hypertrophy: Hold Flomax with low blood pressure. 9. Severe protein caloric malnutrition: has lost 20 lbs in past 2 months. Check prealbumin, dietary consult. 10. Weight loss: min PO intake with pain/vomiting. Consider repeating imaging for malignancy. 11. Diet: Regular. 12. Deep venous thrombosis prophylaxis: Lovenox. Disp: warrants observation admission, given [id number] abdominal pain, requiring IV opioids and IV antiemetics. /[id number]/MODL MTDD
[2017-02-08] MEDS: HYDROmorphONE/DILAUDID 1 MG/ML SYR IVP PRN ×3 (05:09→13:38)
[2017-02-08 06:01] LABS: ANION GAP 6 mEq/L (8-16); CALCIUM 8.6 mg/dL (8.5-10.4); CARBON DIOXIDE 23 mEq/l (22-31); CHLORIDE 111 mEq/L (97-110); CREATININE 0.8 mg/dL (0.7-1.3); GLOMERULAR FILTRATION RATE > 60; GLUCOSE 89 mg/dL (70-100); POTASSIUM 4.1 mEq/L (3.5-5.2); SODIUM 140 mEq/L (134-144)
[2017-02-08] MEDS ORDERED: LACTULOSE 20 GM/30 ML UDCUP PO PRN (06:11)
[2017-02-08] MEDS ORDERED: BISACODYL 10 MG SUPP PR PRN (06:11)
[2017-02-08] MEDS ORDERED: MAGNESIUM HYDROXIDE 30 ML UDCUP PO PRN (06:11)
[2017-02-08] MEDS ORDERED: POLYETHYLENE GLYCOL 3350 17 GM PKT PO PRN (06:11)
[2017-02-08] MEDS: NS 1,000 ML IV SCH ×3 (07:14→23:04)
[2017-02-08] MEDS: CALCIUM CARBONATE 500 MG TAB PO SCH (08:19)
[2017-02-08] MEDS: DULoxetine 30 MG CAP PO SCH (08:19)
[2017-02-08] MEDS: SENNOSIDES/DOCUSATE SODIUM TAB PO SCH ×3 (08:19→20:49)
[2017-02-08] MEDS: ENOXAPARIN 40 MG/0.4 ML SYR SC SCH (08:20)
[2017-02-08] MEDS ORDERED: Herbals/Supplements -Info Only PO SCH (09:00)
[2017-02-08] MEDS: ONDANSETRON DISINTEGRATING 4 MG TAB PO PRN ×3 (09:30→20:48)
[2017-02-08] MEDS ORDERED: HYDROmorphONE/DILAUDID 1 MG/ML SYR IVP PRN ×2 (13:50→13:52)
--- NOTE | 2017-02-08 13:58 | HOSPPROG ---
Hospitalist Progress Note Assessment/Plan: 61 y/o male new to my care today presenting with #acute on chronic abd pain (not controlled) ddx: pancreatitis (nml lipase vs functional) -resume pts usual dose of po dilaudid and treat breakthrough pain with IV dilaudid -monitor o2 sats #BPH -resume flomax #severe protein calorie malnutrition and weight loss -continue outpt workup #depression #RLS Subjective: continues to have severe sharp stabbing pain ruq radiating to back. no vomiting. no fever or chills. +flatus. last bm yesterday Objective: Vital Signs Temp Pulse Resp BP Pulse Ox 36.6 C 53 L 16 100/76 97 02/08/17 11:19 02/08/17 11:19 02/08/17 11:19 02/08/17 11:19 02/08/17 11:19 Laboratory Results 02/08/17 05:36 02/07/17 02/08/17 02/09/17 05:59 05:59 05:59 Intake Total 1700 Balance 1700 abd us reviewed Laboratory Tests 02/07/17 20:10 Lipase 169.0 - Physical Exam Constitutional: uncomfortable Cardiovascular: regular rate and rhythym, no murmur, rub, or gallop Respiratory: no respiratory distress, no rales or rhonchi, clear to auscultation Gastrointestinal: normoactive bowel sounds, tenderness (ruq), No guarding, No rebound, No distension Skin: no rashes or abrasions, no fluctuance, no induration Neurologic: AAOx3, sensation intact bilaterally ICD10 Worksheet Patient Problems: Problems Problem Status Onset Pancreatitis Acute Abdominal pain Acute Vomiting Acute Nausea & vomiting Acute Pancreatitis, acute Acute
[2017-02-08] MEDS: HYDROmorphONE/DILAUDID 4 MG TAB PO PRN ×2 (16:38→20:47)
[2017-02-08] MEDS: DIAZEPAM 5 MG TAB PO PRN (20:48)
[2017-02-08] MEDS: GABAPENTIN 300 MG CAP PO SCH (20:48)
[2017-02-09] MEDS: HYDROmorphONE/DILAUDID 4 MG TAB PO PRN ×2 (02:04→06:27)
[2017-02-09] MEDS: NS 1,000 ML IV SCH (06:28)
[2017-02-09] MEDS: ONDANSETRON DISINTEGRATING 4 MG TAB PO PRN (06:28)
[2017-02-09 07:35] VITALS: BP 107/61; PULSE 48; RESP 18; TEMP 97.7; O2SAT 97
[2017-02-09] MEDS ORDERED: TAMSULOSIN HCL 0.4 MG CAP PO SCH (09:00)
--- NOTE | 2017-02-09 10:08 | GDS ---
[f rep st] DISCHARGE SUMMARY DISCHARGE DIAGNOSES: 1. Acute on chronic abdominal pain, most likely due to exacerbation of chronic pancreatitis. 2. Benign prostatic hyperplasia. 3. Severe protein-calorie malnutrition and weight loss. 4. Depression. 5. Restless legs syndrome. 6. Chronic continuous opioid dependency. 7. History of hepatitis C. CONSULTANTS: None. HOSPITAL COURSE AND STAY BY PROBLEM: Acute on chronic abdominal pain: The patient was admitted to the hospital where he was treated with IV Dilaudid. On hospital day #1, he was restarted on his ora l Dilaudid which seems to have controlled his pain. On day of discharge, he is tolerating a regular diet and is no longer vomiting. On the day of discharge, the patient states he is feeling better and would like to go home. PHYSICAL EXAM: VITAL SIGNS: On day of discharge, blood pressure 107/61, pulse 48, respiratory rate 18, O2 saturation 97% on 2 L. Temperature afebrile. GENERAL: No acute distress. HEART: S1, S2. LUNGS: Clear. ABDOMEN: Soft. EXTREMITIES: No edema. PERTINENT LABS AND STUDIES: Abdominal ultrasound on 02/07/2017 showed no focal hepatic mass or bile duct dilation, normal sonographic appearance of the pancreas. DISCHARGE MEDICATIONS: Please refer to discharge medication reconciliation in [facility] for details. No new medications were started on hospital discharge. DISCHARGE INSTRUCTIONS: The patient will be discharged from the hospital where he was urged to seek followup with his primary care provider for further evaluation of his weight loss. He also should follow up with GI as directed. /[id number]/MODL
[2017-02-09] MEDS: DULoxetine 30 MG CAP PO SCH (10:18)
[2017-02-09] MEDS: CALCIUM CARBONATE 500 MG TAB PO SCH (10:18)
[2017-02-09] MEDS: ENOXAPARIN 40 MG/0.4 ML SYR SC SCH (10:18)
[2017-02-09] MEDS: SENNOSIDES/DOCUSATE SODIUM TAB PO SCH (11:02)
== END 2017-02-09 12:22 | disposition home or self-care (01) | DRG 438 ==
LOC: F3E 22:00
PROVIDERS: ADMIT Internal Medicine; ATTEND Internal Medicine
DX: K86.1 Other chronic pancreatitis (principal); E43 Unspecified severe protein-calorie malnutrition; F11.20 Opioid dependence, uncomplicated; N40.0 Benign prostatic hyperplasia without lower urinary tract symptoms; F32.9 Major depressive disorder, single episode, unspecified; G25.81 Restless legs syndrome; G89.29 Other chronic pain; Z87.891 Personal history of nicotine dependence; Z86.19 Personal history of other infectious and parasitic diseases
CPT/HCPCS: 84134-90; 96374; J1170; J1650; J2405; J3010

== ENCOUNTER 2017-02-12 03:43 | Emergency (ER) | payer OTHER ==
[2017-02-12 03:50] VITALS: RESP 16; TEMP 98.2
[2017-02-12] MEDS ORDERED: ONDANSETRON 4 MG/2 ML VIAL IVP ONE (03:53)
[2017-02-12] MEDS ORDERED: ONDANSETRON 4 MG/2 ML VIAL ONE (03:54)
[2017-02-12] MEDS ORDERED: HYDROmorphONE/DILAUDID 1 MG/ML SYR IVP ONE ×2 (04:17→05:20)
[2017-02-12 04:21] LABS: % IMMATURE GRANULYOCYTES 0.3 % (0.0-1.1); ABSOLUTE IMMATURE GRANULOCYTES 0.02 10^3/uL (0.00-0.10); ADD DIFF? NO; ADD MORPH? NO; ADD SCAN? NO; ATYPICAL LYMPHOCYTE FLAG 0 (0-99); FRAGMENT RBC FLAG 0 (0-99); HEMATOCRIT 43.1 % (40.0-51.0); HEMOGLOBIN 15.1 g/dL (13.7-17.5); LEFT SHIFT FLG 0 (0-99); LIPEMIA HEMOLYSIS FLAG 90 (0-99); MEAN CELL HEMOGLOBIN 31.2 pg (27.9-34.1); MEAN PLATELET VOLUME 9.5 fL (8.7-11.7); PLATELET CLUMPS FLAG 0 (0-99); PLATELET COUNT 211 10^3/uL (150-400); RED BLOOD CELL COUNT 4.84 10^6/uL (4.40-6.38); RED CELL DISTRIBUTION WIDTH 12.7 % (11.5-15.2)
[2017-02-12 04:34] LABS: ALANINE AMINOTRANSFERASE 128 IU/L (21-72); ALBUMIN 4.5 g/dL (3.5-5.0); ALKALINE PHOSPHATASE 101 IU/L (38-126); ANION GAP 12 mEq/L (8-16); ASPARTATE AMINOTRANSFERASE 41 IU/L (17-59); BILIRUBIN,TOTAL 0.8 mg/dL (0.1-1.4); BILIRUBIN-CONJUGATED 0.5 mg/dL (0.0-0.5); BILIRUBIN-UNCONJUGATED 0.3 mg/dL (0.0-1.1); CALCIUM 9.8 mg/dL (8.5-10.4); CARBON DIOXIDE 27 mEq/l (22-31); CHLORIDE 104 mEq/L (97-110); CREATININE 0.8 mg/dL (0.7-1.3); GLOMERULAR FILTRATION RATE > 60; GLUCOSE 134 mg/dL (70-100); SODIUM 143 mEq/L (134-144); TOTAL PROTEIN 7.1 g/dL (6.3-8.2)
[2017-02-12 04:40] VITALS: O2SAT 96
[2017-02-12] MEDS ORDERED: HYDROmorphONE/DILAUDID 1 MG/ML SYR ONE (05:20)
--- NOTE | 2017-02-12 05:25 | EDPHY ---
H & P Stated Complaint: n/v Time Seen by Provider: 02/12/17 04:00 HPI/ROS: Chief Complaint: Abdominal pain HPI: 61-year-old male with a history of chronic pancreatitis, discharge 3 days ago after any acute exacerbation. Patient was doing well and actually yesterday was doing yard work including mowing and edging. This morning he began having acute exacerbation of his chronic right-sided abdominal pain. Is also having nausea vomiting unable to keep any of his pain medications down. Denies any fevers or chills. No hematemesis. No melena or hematochezia. No chest pain shortness of breath. Pain is always in his upper abdomen and primarily on the right-hand side which is his usual. He chronically takes Dilaudid for this. No urinary symptoms. No falls or injuries. ROS: 10 point Review of Systems is negative except as noted in the HPI. PMH: Chronic pancreatitis Benign prostate hypertrophy Protein calorie malnutrition Depression Restless leg syndrome Opioid dependency Hepatitis-C Social History: No smoking, no alcohol, no recreational drug use Family History: non-contributory Physical Exam: Gen: Awake, Alert, uncomfortable appearing HEENT: Nose: no rhinorrhea Eyes: PERRLA, EOMI Mouth: Moist mucosa Neck: Supple, no JVD Chest: nontender, lungs clear to auscultation Heart: S1, S2 normal, no murmur Abd: Diffuse abdominal tenderness with guarding, primarily in the right upper quadrant. Back: no CVA tenderness, no midline tenderness Ext: no edema, non-tender Skin: no rash Neuro: CN II-XII intact, Sensation grossly intact, Strength 5/5 in bilateral upper and lower extremities - Personal History Current Tetanus/Diphtheria Vaccine: Yes Current Tetanus Diphtheria and Acellular Pertussis (TDAP): Yes Tetanus Vaccine Date: < 10 YEARS - Medical/Surgical History Hx Asthma: No Hx Chronic Respiratory Disease: No Hx Diabetes: No Hx Cardiac Disease: No Hx Renal Disease: No Hx Cirrhosis: Yes Hx Alcoholism: Yes Hx HIV/AIDS: No Hx Splenectomy or Spleen Trauma: No Other PMH: cyclic vomitting, HEP C/treatment completed, CHRONIC PANCREATITIS, AYDEE CONSTRICTURE, chronic back pain, TONSILLECTOMY, APPY, ORTHO SURGERY, CHOLECYSTECTOMY - Social History Smoking Status: Former smoker Constitutional: Initial Vital Signs Temperature (C) 36.8 C 02/12/17 03:47 Heart Rate 52 L 02/12/17 03:47 Respiratory Rate 16 02/12/17 03:47 Blood Pressure 146/71 H 02/12/17 03:47 O2 Sat (%) 99 02/12/17 03:47 O2 Delivery Mode Room Air O2 (L/minute) 2 Allergies/Adverse Reactions: codeine Allergy (Severe, Verified 02/12/17 03:46) Vomiting hydrocodone Allergy (Severe, Verified 02/12/17 03:46) Vomiting oxycodone [Oxycodone] Allergy (Severe, Verified 02/12/17 03:46) Vomiting clonazepam Allergy (Verified 02/12/17 03:46) tizanidine Allergy (Verified 02/12/17 03:46) topiramate Allergy (Verified 02/12/17 03:46) Home Medications: Medication Instructions Recorded Acet/Caffeine/Buta Fioricet 1 - 2 each PO Q4 PRN MDD 4 tabs in 02/07/17 [Fioricet (*)] 24 hours Calcium Carbonate [Calcium] 1,000 mg PO DAILY 02/07/17 Diazepam [Valium 10 MG (*)] 10 mg PO HS PRN 02/07/17 Duloxetine HCl [Cymbalta] 30 mg PO DAILY 02/07/17 Gabapentin [Neurontin 300 MG (*)] 600 mg PO HS 02/07/17 HYDROmorphone HCL [Dilaudid 4 mg 2 - 4 mg PO Q4-6PRN PRN 02/07/17 (*)] Herbals/Supplements -Info Only 1 ea PO DAILY 02/07/17 LORAZEPAM [Ativan] 1 ml PO BID PRN MDD 45cc per month 02/07/17 Magnesium Oxide [Magnesium Oxide 500 mg PO DAILY 02/07/17 500 mg] Naloxone HCl 1 mg IJ AD PRN 02/07/17 Ondansetron Odt [Zofran Odt 4 mg 4 - 8 mg PO Q8H PRN 02/07/17 (*)] Promethazine HCl [Phenergan 25mg 25 mg PO BID PRN 02/07/17 (*)] Tamsulosin HCl [Flomax 0.4 MG (*)] 0.4 mg PO DAILY 02/07/17 rOPINIRole HCL [Ropinirole HCl] 4 - 12 mg PO HS PRN 02/07/17 Medical Decision Making ED Course/Re-evaluation: Patient is significantly improved after IV fluids, analgesia and antiemetics. He would like to go home. He feels this is a flare of his pain from last week. Will discharge with follow-up with primary care physician. - Data Points Laboratory Results: Laboratory Results 02/12/17 04:00 02/12/17 04:00 02/12/17 02/12/17 04:00 04:00 WBC 7.81 10^3/uL 10^3/uL (3.80-9.50) RBC 4.84 10^6/uL 10^6/uL (4.40-6.38) Hgb 15.1 g/dL g/dL (13.7-17.5) Hct 43.1 % % (40.0-51.0) MCV 89.0 fL fL (81.5-99.8) MCH 31.2 pg pg (27.9-34.1) MCHC 35.0 g/dL g/dL (32.4-36.7) RDW 12.7 % % (11.5-15.2) Plt Count 211 10^3/uL 10^3/uL (150-400) MPV 9.5 fL fL (8.7-11.7) Neut % (Auto) 82.4 % H % (39.3-74.2) Lymph % (Auto) 10.8 % L % (15.0-45.0) [place] % (Auto) 4.7 % % (4.5-13.0) Eos % (Auto) 1.0 % % (0.6-7.6) Baso % (Auto) 0.8 % % (0.3-1.7) Nucleat RBC Rel Count 0.0 % % (0.0-0.2) Absolute Neuts (auto) 6.44 10^3/uL 10^3/uL (1.70-6.50) Absolute Lymphs (auto) 0.84 10^3/uL L 10^3/uL (1.00-3.00) Absolute Monos (auto) 0.37 10^3/uL 10^3/uL (0.30-0.80) Absolute Eos (auto) 0.08 10^3/uL 10^3/uL (0.03-0.40) Absolute Basos (auto) 0.06 10^3/uL 10^3/uL (0.02-0.10) Absolute Nucleated RBC 0.00 10^3/uL 10^3/uL (0-0.01) Immature Gran % 0.3 % % (0.0-1.1) Immature Gran # 0.02 10^3/uL 10^3/uL (0.00-0.10) Sodium 143 mEq/L mEq/L (134-144) Potassium 4.0 mEq/L mEq/L (3.5-5.2) Chloride 104 mEq/L mEq/L (97-110) Carbon Dioxide 27 mEq/l mEq/l (22-31) Anion Gap 12 mEq/L mEq/L (8-16) BUN 16 mg/dL mg/dL (7-23) Creatinine 0.8 mg/dL mg/dL (0.7-1.3) Estimated GFR > 60 Glucose 134 mg/dL H mg/dL (70-100) Calcium 9.8 mg/dL mg/dL (8.5-10.4) Total Bilirubin 0.8 mg/dL mg/dL (0.1-1.4) Conjugated Bilirubin 0.5 mg/dL mg/dL (0.0-0.5) Unconjugated Bilirubin 0.3 mg/dL mg/dL (0.0-1.1) AST 41 IU/L IU/L (17-59) ALT 128 IU/L H IU/L (21-72) Alkaline Phosphatase 101 IU/L IU/L (38-126) Total Protein 7.1 g/dL g/dL (6.3-8.2) Albumin 4.5 g/dL g/dL (3.5-5.0) Lipase 53.0 IU/L IU/L (23-300) Medications Given: Discontinued Medications Hydromorphone HCl (Dilaudid) 1 mg IVP EDNOW ONE Stop: 02/12/17 04:18 Last Admin: 02/12/17 04:35 Dose: 1 mg Hydromorphone HCl (Dilaudid) 1 mg IVP EDNOW ONE Stop: 02/12/17 05:21 Last Admin: 02/12/17 05:27 Dose: 1 mg Ondansetron HCl (Zofran) 4 mg IVP EDNOW ONE Stop: 02/12/17 03:54 Last Admin: 02/12/17 04:07 Dose: 4 mg Departure - Departure Disposition: Home, Routine, Self-Care Clinical Impression: Abdominal pain Condition: Good Instructions: Abdominal Pain (ED) Additional Instructions: Please resume your usual pain medicines. Follow up with primary care physician in 3-4 days for re-evaluation. Return emergency depart for increasing pain, nausea, vomiting, fevers, chills, or any other concerns. Referrals: John Xiao MD [Primary Care Provider] - As per Instructions
[2017-02-12 06:41] VITALS: BP 107/58; PULSE 66
== END 2017-02-12 06:41 | disposition home or self-care (01) ==
DX: R10.84 Generalized abdominal pain (principal); Z90.49 Acquired absence of other specified parts of digestive tract; Z87.891 Personal history of nicotine dependence
CPT/HCPCS: 96374; J1170; J2405

== ENCOUNTER 2017-02-18 10:22 | Observation (INO) | payer OTHER ==
[2017-02-18] MEDS ORDERED: ONDANSETRON 4 MG/2 ML VIAL IVP ONE ×2 (10:56→12:35)
[2017-02-18] MEDS ORDERED: HYDROmorphONE/DILAUDID 1 MG/ML SYR IVP ONE (10:57)
[2017-02-18] MEDS ORDERED: NS 1,000 ML IV ONE ×2 (11:02→13:32)
[2017-02-18] MEDS ORDERED: METOCLOPRAMIDE 10 MG/2 ML VIAL IVP ONE (11:02)
[2017-02-18] MEDS ORDERED: LORazepam 2 MG/ML INJ IVP ONE ×2 (11:03→12:33)
[2017-02-18 11:08] LABS: % IMMATURE GRANULYOCYTES 0.3 % (0.0-1.1); ABSOLUTE IMMATURE GRANULOCYTES 0.03 10^3/uL (0.00-0.10); ADD DIFF? NO; ADD MORPH? NO; ADD SCAN? NO; ATYPICAL LYMPHOCYTE FLAG 0 (0-99); FRAGMENT RBC FLAG 0 (0-99); HEMATOCRIT 44.8 % (40.0-51.0); HEMOGLOBIN 15.4 g/dL (13.7-17.5); LEFT SHIFT FLG 20 (0-99); LIPEMIA HEMOLYSIS FLAG 90 (0-99); MEAN CELL HEMOGLOBIN CONCENTR. 34.4 g/dL (32.4-36.7); MEAN CELL VOLUME 90.3 fL (81.5-99.8); MEAN PLATELET VOLUME 9.3 fL (8.7-11.7); PLATELET CLUMPS FLAG 0 (0-99); PLATELET COUNT 226 10^3/uL (150-400); RED BLOOD CELL COUNT 4.96 10^6/uL (4.40-6.38); RED CELL DISTRIBUTION WIDTH 12.9 % (11.5-15.2)
[2017-02-18 11:22] LABS: ALANINE AMINOTRANSFERASE 47 IU/L (21-72); ALBUMIN 4.2 g/dL (3.5-5.0); ALKALINE PHOSPHATASE 87 IU/L (38-126); ANION GAP 15 mEq/L (8-16); ASPARTATE AMINOTRANSFERASE 21 IU/L (17-59); BILIRUBIN,TOTAL 0.4 mg/dL (0.1-1.4); CALCIUM 9.5 mg/dL (8.5-10.4); CARBON DIOXIDE 22 mEq/l (22-31); CHLORIDE 102 mEq/L (97-110); CREATININE 0.8 mg/dL (0.7-1.3); GLOMERULAR FILTRATION RATE > 60; GLUCOSE 120 mg/dL (70-100); POTASSIUM 4.4 mEq/L (3.5-5.2); SODIUM 139 mEq/L (134-144); TOTAL PROTEIN 7.3 g/dL (6.3-8.2)
[2017-02-18] MEDS: KETOROLAC 30 MG/1 ML SDV IVP ONE ×2 (12:35→12:41)
--- NOTE | 2017-02-18 13:30 | EDPHY ---
H & P Stated Complaint: vomiting since 5 am Time Seen by Provider: 02/18/17 10:56 HPI/ROS: This patient reports vomiting and abdominal pain that worsens since 5:00 a.m.. The patient has chronic nausea as well as chronic abdominal pain of unclear etiology. He has also history of prior acute pancreatitis and cyclic vomiting syndrome. He is on multiple analgesics and antipyretics. However, despite Zofran and Compazine suspension this morning he had onset of vomiting-several episodes as well as abdominal pain is diffuse in location. The abdominal pain is worse in the epigastric region than elsewhere and radiates to his back. ROS: Constitutional: No fevers or chills HEENT: No recent URI symptoms or other complaints Pulmonary: No cough shortness of breath Cardiovascular: No chest pain, heart palpitations or lightheadedness. GI: As per HPI. No hematemesis. He reports normal bowel movements. : No complaints Integumentary: No skin rash or other complaints Neuro: No focal complaints. 10 point ROS is otherwise negative Source: Patient, Family (His also provides history.) Exam Limitations: No limitations - Personal History Tetanus Vaccine Date: < 10 YEARS - Medical/Surgical History PMH: Past surgical history: Cholecystectomy Appendectomy Recently hospitalized at [facility] for cyclic vomiting. Hx Asthma: No Hx Chronic Respiratory Disease: No Hx Diabetes: No Hx Cardiac Disease: No Hx Renal Disease: No Hx Cirrhosis: Yes Hx Alcoholism: Yes Hx HIV/AIDS: No Hx Splenectomy or Spleen Trauma: No Other PMH: cyclic vomitting, HEP C/treatment completed, CHRONIC PANCREATITIS, AYDEE CONSTRICTURE, chronic back pain, TONSILLECTOMY, APPY, ORTHO SURGERY, CHOLECYSTECTOMY - Family History Significant Family History: No pertinent family hx - Social History Smoking Status: Former smoker Alcohol Use: Rarely (No alcohol in 10 years per ) Drug Use: Marijuana - Physical Exam Exam: General Appearance: Patient is initially in some distress due to frequent retching and abdominal pain. Eyes: Pupils equal and round no pallor or injection. ENT, Mouth: Mucous membranes moist. Respiratory: There are no retractions, lungs are clear to auscultation. Cardiovascular: Regular rate and rhythm. Gastrointestinal: Normoactive, soft, diffuse mild tenderness with moderate epigastric tenderness that reproduces his symptoms. No pulsatile masses. Back: No tenderness. CVA tenderness Neurological: GCS 15 with no focal sensory or motor deficits Skin: Warm and dry, no rashes. Musculoskeletal: Neck is supple nontender. Extremities are symmetrical, full range of motion. Psychiatric: Patient is anxious on arrival. DIFFERENTIAL DIAGNOSIS: After history and physical exam differential diagnosis was considered for cyclic vomiting syndrome, acute pancreatitis, cholecystitis, hepatitis, cardiac ischemia Constitutional: Initial Vital Signs Temperature (C) 36.4 C 02/18/17 10:28 Heart Rate 57 L 02/18/17 10:28 Respiratory Rate 20 02/18/17 10:28 Blood Pressure 145/96 H 02/18/17 10:28 O2 Sat (%) 96 02/18/17 10:28 O2 Delivery Mode Room Air Allergies/Adverse Reactions: codeine Allergy (Severe, Verified 02/18/17 10:34) Vomiting hydrocodone Allergy (Severe, Verified 02/18/17 10:34) Vomiting oxycodone [Oxycodone] Allergy (Severe, Verified 02/18/17 10:34) Vomiting clonazepam Allergy (Verified 02/18/17 10:34) tizanidine Allergy (Verified 02/18/17 10:34) topiramate Allergy (Verified 02/18/17 10:34) Home Medications: Medication Instructions Recorded Acet/Caffeine/Buta Fioricet 1 - 2 each PO Q4 PRN MDD 4 tabs in 02/07/17 [Fioricet (*)] 24 hours Diazepam [Valium 10 MG (*)] 10 mg PO HS PRN 02/07/17 Duloxetine HCl [Cymbalta] 30 mg PO DAILY 02/07/17 Gabapentin [Neurontin 300 MG (*)] 600 mg PO HS 02/07/17 HYDROmorphone HCL [Dilaudid 4 mg 2 - 4 mg PO Q4-6PRN PRN 02/07/17 (*)] Herbals/Supplements -Info Only 1 ea PO DAILY 02/07/17 LORAZEPAM [Ativan] 1 ml PO BID PRN MDD 45cc per month 02/07/17 Naloxone HCl 1 mg IJ AD PRN 02/07/17 Ondansetron Odt [Zofran Odt 4 mg 4 - 8 mg PO Q8H PRN 02/07/17 (*)] Promethazine HCl [Phenergan 25mg 25 mg PO BID PRN 02/07/17 (*)] Tamsulosin HCl [Flomax 0.4 MG (*)] 0.4 mg PO DAILY 02/07/17 rOPINIRole HCL [Ropinirole HCl] 4 - 12 mg PO HS PRN 02/07/17 Medical Decision Making - Diagnostics EKG Interpretation: 12 lead EKG performed at 1:51 p.m. indication chest pain vomiting rule out coronary ischemia Sinus rhythm at 52 Intervals: Normal throughout [place]: P of 26, QRS of 65, T of 6 ST segments: Appear normal throughout overall assessment: sinus rhythm, borderline R-wave progression anteriorly otherwise normal. No previous for comparison. Please refer to trace master for complete read. ED Course/Re-evaluation: IV normal saline bolus, Zofran 4 mg IV, Dilaudid, 50 mg, Ativan 1 mg and Reglan 5 mg with reduction in vomiting and minimal change in discomfort Toradol 30 mg IV, repeat 1 mg Ativan, Zofran 4 mg with further relief. 2nd L normal saline bolus initiated I spoke with the neck, mid-level practitioner with hospitalist Service at [facility] accepts the patient for transfer to [facility] Discussion: Patient with cyclic vomiting syndrome and acute pancreatitis warranting admission for further hydration and treatment. His LFTs are normal without evidence of significant biliary obstruction associated with this. Despite his discomfort is quite stable hemodynamically and his lab values indicate very good prognosis in terms of his pancreatitis. - Data Points Laboratory Results: Laboratory Results 02/18/17 11:00 02/18/17 11:00 02/18/17 02/18/17 02/18/17 11:00 11:00 11:00 WBC 10.11 10^3/uL H 10^3/uL (3.80-9.50) RBC 4.96 10^6/uL 10^6/uL (4.40-6.38) Hgb 15.4 g/dL g/dL (13.7-17.5) Hct 44.8 % % (40.0-51.0) MCV 90.3 fL fL (81.5-99.8) MCH 31.0 pg pg (27.9-34.1) MCHC 34.4 g/dL g/dL (32.4-36.7) RDW 12.9 % % (11.5-15.2) Plt Count 226 10^3/uL 10^3/uL (150-400) MPV 9.3 fL fL (8.7-11.7) Neut % (Auto) 81.7 % H % (39.3-74.2) Lymph % (Auto) 9.2 % L % (15.0-45.0) [place] % (Auto) 6.2 % % (4.5-13.0) Eos % (Auto) 2.0 % % (0.6-7.6) Baso % (Auto) 0.6 % % (0.3-1.7) Nucleat RBC Rel Count 0.0 % % (0.0-0.2) Absolute Neuts (auto) 8.26 10^3/uL H 10^3/uL (1.70-6.50) Absolute Lymphs (auto) 0.93 10^3/uL L 10^3/uL (1.00-3.00) Absolute Monos (auto) 0.63 10^3/uL 10^3/uL (0.30-0.80) Absolute Eos (auto) 0.20 10^3/uL 10^3/uL (0.03-0.40) Absolute Basos (auto) 0.06 10^3/uL 10^3/uL (0.02-0.10) Absolute Nucleated RBC 0.00 10^3/uL 10^3/uL (0-0.01) Immature Gran % 0.3 % % (0.0-1.1) Immature Gran # 0.03 10^3/uL 10^3/uL (0.00-0.10) Sodium 139 mEq/L mEq/L (134-144) Potassium 4.4 mEq/L mEq/L (3.5-5.2) Chloride 102 mEq/L mEq/L (97-110) Carbon Dioxide 22 mEq/l mEq/l (22-31) Anion Gap 15 mEq/L mEq/L (8-16) BUN 20 mg/dL mg/dL (7-23) Creatinine 0.8 mg/dL mg/dL (0.7-1.3) Estimated GFR > 60 Glucose 120 mg/dL H mg/dL (70-100) Calcium 9.5 mg/dL mg/dL (8.5-10.4) Total Bilirubin 0.4 mg/dL mg/dL (0.1-1.4) AST 21 IU/L IU/L (17-59) ALT 47 IU/L IU/L (21-72) Alkaline Phosphatase 87 IU/L IU/L (38-126) Total Protein 7.3 g/dL g/dL (6.3-8.2) Albumin 4.2 g/dL g/dL (3.5-5.0) Lipase 1301.0 IU/L H IU/L (23-300) Departure - Departure Disposition: [facility] Inpatient Acute Clinical Impression: Acute pancreatitis Qualifiers: Pancreatitis type: unspecified pancreatitis type Acute pancreatitis complication: unspecified Qualified Code(s): K85.90 - Acute pancreatitis without necrosis or infection, unspecified Condition: Good
--- NOTE | 2017-02-18 14:40 | PDGENHP ---
History and Physical - Chief Complaint abdominal pain and vomiting - History of Present Illness 61 yo male with h/o chronic back and abdominal pain and chronic nausea/vomiting , presented to urgent care with abdominal pain and vomiting starting this am. He has had an extensive GI w/u with [facility], all unrevealing. He's been diagnosed with cyclic vomiting syndrome. This is his 3rd episode in the past month. He denies etoh. He endorses marijuana use, smokes a quarter ounce each week. He denies hematemesis or coffee ground emesis. Last BM was this am. No BRBPR or melanotic stools. Denies dizziness, vision changes, CP or SOB. He did not improve with multiple doses of Dilaudid, Zofran and Ativan in the ED and is admitted for further management. History Information - Allergies/Home Medication List Allergies/Adverse Reactions: codeine Allergy (Severe, Verified 02/18/17 10:34) Vomiting hydrocodone Allergy (Severe, Verified 02/18/17 10:34) Vomiting oxycodone [Oxycodone] Allergy (Severe, Verified 02/18/17 10:34) Vomiting clonazepam Allergy (Verified 02/18/17 10:34) tizanidine Allergy (Verified 02/18/17 10:34) topiramate Allergy (Verified 02/18/17 10:34) Home Medications: Acet/Caffeine/Buta Fioricet [Fioricet (*)] 1 - 2 each PO Q4 PRN MDD 4 tabs in 24 hours 02/07/17 [Last Taken Unknown] Diazepam [Valium 10 MG (*)] 10 mg PO HS PRN 02/07/17 [Last Taken Unknown] Duloxetine HCl [Cymbalta] 30 mg PO DAILY 02/07/17 [Last Taken Unknown] Gabapentin [Neurontin 300 MG (*)] 600 mg PO HS 02/07/17 [Last Taken 02/06/17] HYDROmorphone HCL [Dilaudid 4 mg (*)] 2 - 4 mg PO Q4-6PRN PRN 02/07/17 [Last Taken 02/07/17 09:00] Herbals/Supplements -Info Only 1 ea PO DAILY 02/07/17 [Last Taken 01/31/17] LORAZEPAM [Ativan] 1 ml PO BID PRN MDD 45cc per month 02/07/17 [Last Taken 02/06] Naloxone HCl 1 mg IJ AD PRN 02/07/17 [Last Taken Unknown] Ondansetron Odt [Zofran Odt 4 mg (*)] 4 - 8 mg PO Q8H PRN 02/07/17 [Last Taken 02/07/17 14:30] Promethazine HCl [Phenergan 25mg (*)] 25 mg PO BID PRN 02/07/17 [Last Taken Unknown] Tamsulosin HCl [Flomax 0.4 MG (*)] 0.4 mg PO DAILY 02/07/17 [Last Taken Unknown] rOPINIRole HCL [Ropinirole HCl] 4 - 12 mg PO HS PRN 02/07/17 [Last Taken 09:00] I have personally reviewed and updated: family history, medical history, social history, surgical history - Past Medical History Additional medical history: Hep C s/p treatment, cyclic vomiting, chronic pancreatitis, chronic back and abdominal pain - Surgical History Reports: appendectomy, cholecystectomy Additional surgical history: tonsillectomy - Family History Positive for: non-pertinent - Social History Smoking Status: Former smoker Alcohol Use: Rarely (No alcohol in 10 years per ) Drug Use: Marijuana Review of Systems ROS: 10pt was reviewed & negative except for what was stated in HPI & below Physical Exam Temp Pulse Resp BP Pulse Ox 37.0 C 51 L 16 148/83 H 97 02/18/17 14:03 02/18/17 14:03 02/18/17 14:03 02/18/17 14:03 02/18/17 14:03 Constitutional: no apparent distress Eyes: PERRL Ears, Nose, Mouth, Throat: moist mucous membranes Cardiovascular: regular rate and rhythym, no murmur, rub, or gallop Respiratory: no respiratory distress, clear to auscultation Gastrointestinal: normoactive bowel sounds, other (soft, nd, +diffuse TTP, no r/ r/g, no peritoneal signs) Skin: warm Musculoskeletal: full muscle strength Neurologic: AAOx3 Psychiatric: interacting appropriately Lab Data & Imaging Review 02/18/17 11:00 02/18/17 11:00 WBC 10.11 10^3/uL (3.80-9.50) H 02/18/17 11:00 RBC 4.96 10^6/uL (4.40-6.38) 02/18/17 11:00 Hgb 15.4 g/dL (13.7-17.5) 02/18/17 11:00 Hct 44.8 % (40.0-51.0) 02/18/17 11:00 MCV 90.3 fL (81.5-99.8) 02/18/17 11:00 MCH 31.0 pg (27.9-34.1) 02/18/17 11:00 MCHC 34.4 g/dL (32.4-36.7) 02/18/17 11:00 RDW 12.9 % (11.5-15.2) 02/18/17 11:00 Plt Count 226 10^3/uL (150-400) 02/18/17 11:00 MPV 9.3 fL (8.7-11.7) 02/18/17 11:00 Neut % (Auto) 81.7 % (39.3-74.2) H 02/18/17 11:00 Lymph % (Auto) 9.2 % (15.0-45.0) L 02/18/17 11:00 [place] % (Auto) 6.2 % (4.5-13.0) 02/18/17 11:00 Eos % (Auto) 2.0 % (0.6-7.6) 02/18/17 11:00 Baso % (Auto) 0.6 % (0.3-1.7) 02/18/17 11:00 Nucleat RBC Rel Count 0.0 % (0.0-0.2) 02/18/17 11:00 Absolute Neuts (auto) 8.26 10^3/uL (1.70-6.50) H 02/18/17 11:00 Absolute Lymphs (auto) 0.93 10^3/uL (1.00-3.00) L 02/18/17 11:00 Absolute Monos (auto) 0.63 10^3/uL (0.30-0.80) 02/18/17 11:00 Absolute Eos (auto) 0.20 10^3/uL (0.03-0.40) 02/18/17 11:00 Absolute Basos (auto) 0.06 10^3/uL (0.02-0.10) 02/18/17 11:00 Absolute Nucleated RBC 0.00 10^3/uL (0-0.01) 02/18/17 11:00 Immature Gran % 0.3 % (0.0-1.1) 02/18/17 11:00 Immature Gran # 0.03 10^3/uL (0.00-0.10) 02/18/17 11:00 Sodium 139 mEq/L (134-144) 02/18/17 11:00 Potassium 4.4 mEq/L (3.5-5.2) 02/18/17 11:00 Chloride 102 mEq/L (97-110) 02/18/17 11:00 Carbon Dioxide 22 mEq/l (22-31) 02/18/17 11:00 Anion Gap 15 mEq/L (8-16) 02/18/17 11:00 BUN 20 mg/dL (7-23) 02/18/17 11:00 Creatinine 0.8 mg/dL (0.7-1.3) 02/18/17 11:00 Estimated GFR > 60 02/18/17 11:00 Glucose 120 mg/dL (70-100) H 02/18/17 11:00 Calcium 9.5 mg/dL (8.5-10.4) 02/18/17 11:00 Total Bilirubin 0.4 mg/dL (0.1-1.4) 02/18/17 11:00 AST 21 IU/L (17-59) 02/18/17 11:00 ALT 47 IU/L (21-72) 02/18/17 11:00 Alkaline Phosphatase 87 IU/L (38-126) 02/18/17 11:00 Total Protein 7.3 g/dL (6.3-8.2) 02/18/17 11:00 Albumin 4.2 g/dL (3.5-5.0) 02/18/17 11:00 Lipase 1301.0 IU/L (23-300) H 02/18/17 11:00 Assessment & Plan Assessment: Abdominal pain and vomiting - +h/o chronic pancreatitis and cyclic vomiting syndrome. He may have an elevated lipase today in the setting of acute vomiting. Extensive GI w/u in past by [facility] [place] unrevealing. Abd u/s done 11 days ago did not show pancreatitis nor did a CT abd in 11/2016. -Admit, NPO, bowel rest, IVF's, supportive care -anti-emetics, pain control -will defer imaging for now, though consider if his condition worsens or does not improve -recommended he abstain from marijuana though pt does not think this is related Restless legs - cont outpt meds Depression - cont outpt meds Protein calorie malnutrition - weight loss noted, dietary consult requested H/O Hep C Full code DVT PPLX - SCD's for now, consider Lovenox should he require a prolonged hospitalization Dispo - obs
[2017-02-18] MEDS ORDERED: ONDANSETRON DISINTEGRATING 4 MG TAB PO PRN (15:14)
[2017-02-18] MEDS ORDERED: ONDANSETRON 4 MG/2 ML VIAL IVP PRN (15:14)
[2017-02-18] MEDS ORDERED: HYDROmorphONE/DILAUDID 1 MG/ML SYR IVP PRN (15:14)
[2017-02-18] MEDS ORDERED: METOCLOPRAMIDE 10 MG/2 ML VIAL IVP PRN (15:14)
[2017-02-18] MEDS: NS W/ 20 KCl/L 1,000 ML IV SCH ×2 (15:35→21:43)
[2017-02-18] MEDS: HYDROmorphONE/DILAUDID 1 MG/ML SYR IVP PRN ×2 (19:11→23:45)
[2017-02-18] MEDS ORDERED: ACET/CAFFEINE/BUTA FIORICET 1 EACH TAB PO PRN (20:49)
[2017-02-18] MEDS ORDERED: PROMETHAZINE HCL 25 MG TAB PO PRN (20:49)
[2017-02-18] MEDS ORDERED: DIAZEPAM 5 MG TAB PO PRN (20:49)
[2017-02-18] MEDS ORDERED: TAMSULOSIN HCL 0.4 MG CAP PO SCH (21:00)
[2017-02-18] MEDS ORDERED: DULoxetine 30 MG CAP PO SCH (21:00)
[2017-02-18] MEDS ORDERED: GABAPENTIN 300 MG CAP PO SCH (21:00)
[2017-02-19] MEDS: HYDROmorphONE/DILAUDID 1 MG/ML SYR IVP PRN (03:37)
[2017-02-19] MEDS: NS W/ 20 KCl/L 1,000 ML IV SCH (04:30)
[2017-02-19 05:12] LABS: ANION GAP 3 mEq/L (8-16); CALCIUM 8.8 mg/dL (8.5-10.4); CARBON DIOXIDE 23 mEq/l (22-31); CHLORIDE 112 mEq/L (97-110); CREATININE 0.8 mg/dL (0.7-1.3); GLOMERULAR FILTRATION RATE > 60; GLUCOSE 85 mg/dL (70-100); POTASSIUM 5.2 mEq/L (3.5-5.2); SODIUM 138 mEq/L (134-144)
[2017-02-19 07:27] VITALS: RESP 16
--- NOTE | 2017-02-19 07:37 | CPEKG ---
Heart Rate: 52 RR Interval: 1154 P-R Interval: 184 QRSD Interval: 98 QT Interval: 432 QTC Interval: 402 P [place]: -26 QRS [place]: 65 T Wave [place]: 6 EKG Severity - BORDERLINE ECG - EKG Impression: SINUS RHYTHM EKG Impression: BORDERLINE R WAVE PROGRESSION, ANTERIOR LEADS Preliminary Awaiting MD Review
--- NOTE | 2017-02-19 11:36 | HOSPPROG ---
Hospitalist Progress Note Assessment/Plan: 61 yo M w chronic pancreatitis here w exacerbation of chronic pancreatitis abdmonial pain: improved advance to clears dc IV pain meds pancreatitis: suspect this is flare, although vomiting alone can raise liapse ?cannabis hyperemesis syndrome: amount of marijuana puts him at risk follow dispo: home today if tolerates clears Subjective: hungry. pain greatly improved- he attributes it to large BM Objective: Vital Signs Temp Pulse Resp BP Pulse Ox 36.3 C 53 L 16 120/63 96 02/19/17 07:26 02/19/17 07:26 02/19/17 07:26 02/19/17 07:26 02/19/17 07:26 Laboratory Results 02/19/17 04:39 02/18/17 02/19/17 02/20/17 05:59 05:59 05:59 Intake Total 2000 Output Total 300 220 Balance 1700 -220 - Physical Exam Constitutional: no apparent distress, appears nourished Eyes: PERRL, anicteric sclera Ears, Nose, Mouth, Throat: moist mucous membranes, hearing normal Cardiovascular: regular rate and rhythym, no murmur, rub, or gallop Respiratory: no respiratory distress, no rales or rhonchi Gastrointestinal: normoactive bowel sounds, soft, non-tender abdomen Genitourinary: No watts in urethra Skin: warm, normal color Musculoskeletal: full muscle strength, no muscle tenderness Neurologic: AAOx3 Psychiatric: interacting appropriately ICD10 Worksheet Patient Problems: Problems Problem Status Onset Acute pancreatitis Acute Abdominal pain Acute Nausea & vomiting Acute Pancreatitis Acute Pancreatitis, acute Acute Vomiting Acute
[2017-02-19 15:35] VITALS: BP 119/75; PULSE 49; TEMP 98.6; O2SAT 97
--- NOTE | 2017-02-20 01:13 | GDS ---
[f rep st] DISCHARGE SUMMARY DISCHARGE DIAGNOSES: 1. Chronic back pain. 2. Chronic abdominal pain with chronic pancreatitis. 3. What sounds like heavy marijuana use. Patient presented with nausea, vomiting, abdominal pain. He had elevated lipase, he did not have pe ritoneal signs. He was not febrile nor tachycardic. He was made n.p.o., given a AUTHOR AGENT. This morning , he felt well, we advanced his diet to clear liquids, which he tolerated well. He is ready for dis charge. There is no abdominal imaging, given his benign abdominal exam. He is discharged home with unchanged medication regimen. Greater than 30 minutes spent on this discharge. /[id number]/MODL
== END 2017-02-19 16:20 | disposition home or self-care (01) ==
LOC: CED 10:22 → INTOOBSV 12:43 → F1N 14:42
PROVIDERS: ADMIT Hospitalist; ATTEND Hospitalist
DX: K85.90 Acute pancreatitis without necrosis or infection, unspecified (principal); Z86.19 Personal history of other infectious and parasitic diseases; Z87.891 Personal history of nicotine dependence; E46 Unspecified protein-calorie malnutrition; M54.2 Cervicalgia; F12.90 Cannabis use, unspecified, uncomplicated
CPT/HCPCS: 93005; G0378; 80053-PO; 83690-PO; 85025-PO; 96374; J1170; J1200; J1885; J2060; J2405; J2765

== ENCOUNTER 2017-04-27 09:05 | Emergency (ER) | payer OTHER ==
[2017-04-27 09:13] VITALS: TEMP 97.5
[2017-04-27] MEDS ORDERED: NS 1,000 ML IV ONE ×2 (09:23→10:28)
[2017-04-27] MEDS ORDERED: ONDANSETRON 4 MG/2 ML VIAL IVP ONE ×2 (09:23→11:24)
[2017-04-27] MEDS ORDERED: PROMETHAZINE HCL 25 MG/ML INJ IVP ONE (09:24)
--- NOTE | 2017-04-27 09:29 | EDPHY ---
H & P Stated Complaint: chronic pancreatitis flare/ruq abd pain n/v HPI/ROS: CHIEF COMPLAINT: Right upper quadrant pain, vomiting HISTORY OF PRESENT ILLNESS: Patient presents with one-day history of right upper quadrant abdominal pain and vomiting. Started abruptly overnight. He has vomited 10 times since the onset. It is bilious and watery. No bright red blood in the emesis. No fever or chills. There is moderate to severe right upper quadrant pain associated with this. He feels this is similar to his previous episodes of pancreatitis. He has chronic pancreatitis from previous alcohol abuse. He has been sober for 10 years. He took 4 mg Zofran and 1 dose of Compazine at 6:00 a.m. without any improvement. Symptoms have been constant. No other associated complaints or modifying factors. REVIEW OF SYSTEMS: Ten systems reviewed and are negative unless otherwise noted in the HPI PAST MEDICAL HISTORY: Hep C status post treatment, chronic pancreatitis, forearm colic, status post cholecystectomy and appendectomy SOCIAL HISTORY: Lives independently with his spouse FAMILY HISTORY: Noncontributory EXAMINATION General Appearance: Alert, no distress, actively vomiting Head: normocephalic, atraumatic Eyes: Pupils equal and round, no conjunctival pallor or injection ENT, Mouth: Mucous membranes moist Neck: Normal inspection, supple, non-tender Respiratory: Mild rhonchi. No wheezing, crackles, diminishment or consolidation. No retractions or distress Cardiovascular: Regular rate and rhythm. No murmur. Good signs of perfusion distally. Gastrointestinal: Abdomen is soft with right upper quadrant tenderness. No rigidity or distention. No CVA tenderness. No guarding. Back: non-tender, no bony abnormalities Neurological: GCS 15. A&O, nonfocal Skin: Warm and dry, no rash. Multiple tattoos. Extremities: Nontender, no pedal edema Psychiatric: Mood and affect normal DIFFERENTIAL DIAGNOSES: Including but not limited to acute pancreatitis, chronic pancreatitis, hepatitis , gastritis, duodenitis, sickle vomiting, bowel obstruction, enteritis, colitis MDM: 9:25 a.m. Right upper quadrant abdominal pain with nausea vomiting. This is consistent with the patient's previous episodes of pancreatitis. He is actively vomiting during my examination. I have ordered IV fluid, multiple antiemetics. IV is currently being obtained. Laboratory studies have been ordered. 9:40 a.m. I have re-evaluated the patient. He is starting to feel better slowly. His pain is persistent. Laboratory studies reveal a normal CBC is thus far. Chemistry is pending. I will order IV pain medication. 10:20 a.m. Acute on chronic pancreatitis. Lipase is only minimally elevated. His abdominal exam remains benign. He is starting to feel better at this time. He is nauseated but not vomiting. Pain is improved. I will provide 1 further L of IV fluid resuscitation. I discussed admission to the hospital for observation due to the pancreatitis. I discussed that he would benefit from NPO status for 12-24 hours with IV fluid resuscitation. The patient's spouse have informed me that they would like to go home with possible. I will re- evaluate after the 2nd L of IV fluid. 11:15 a.m. Patient is feeling much better. He has had 2 rounds of IV Dilaudid. He has not vomited since the initial IV antiemetics. He has received 2 L IV fluid. I did offer admission to the hospital for observation due to the acute pancreatitis. He has declined. He is awake, alert and has full mental capacities and is able to make this decision. He knows that he may return to the emergency department any time for re-evaluation and further care. 11:30 a.m. Notified by GALI Piña. She says the patient is feeling somewhat jittery. She feels that he may benefit from Benadryl due to the administration of Haldol. I agree with this assessment. I have re-evaluated the patient. He is not exhibiting any concerning signs but does feel jittery. Continue with IV Benadryl and monitor. 12:30 p.m. Patient is feeling much better. He is no longer feeling jittery. He received a 2nd dose of Benadryl and pain medication. He continues to decline admission to the hospital. He prefers to be discharged home. We discussed the risks, benefits and alternatives and he is capable assuming the risk of going home. This includes worsening condition and return to the hospital. I do feel that he is stable for discharge home but that he may return due to his discomfort or vomiting. SUPERVISION: Patient was evaluated in conjunction with the supervising physician. Please see their note for details. Source: Patient, Family, Old records Exam Limitations: No limitations - Personal History Current Tetanus/Diphtheria Vaccine: Yes Tetanus Vaccine Date: < 10 YEARS - Medical/Surgical History Hx Asthma: No Hx Chronic Respiratory Disease: No Hx Diabetes: No Hx Cardiac Disease: No Hx Renal Disease: No Hx Cirrhosis: Yes Hx Alcoholism: Yes Hx HIV/AIDS: No Hx Splenectomy or Spleen Trauma: No Other PMH: cyclic vomitting, HEP C/treatment completed, CHRONIC PANCREATITIS, AYDEE CONSTRICTURE, chronic back pain, TONSILLECTOMY, APPY, ORTHO SURGERY, CHOLECYSTECTOMY - Social History Smoking Status: Current every day smoker Constitutional: Initial Vital Signs Temperature (C) 97.5 F 04/27/17 09:11 Heart Rate 50 L 04/27/17 09:11 Respiratory Rate 20 04/27/17 09:11 Blood Pressure 143/72 H 04/27/17 09:11 O2 Sat (%) 99 04/27/17 09:11 O2 Delivery Mode Room Air Allergies/Adverse Reactions: codeine Allergy (Severe, Verified 04/27/17 09:08) Vomiting hydrocodone Allergy (Severe, Verified 04/27/17 09:08) Vomiting oxycodone [Oxycodone] Allergy (Severe, Verified 04/27/17 09:08) Vomiting clonazepam Allergy (Verified 04/27/17 09:08) tizanidine Allergy (Verified 04/27/17 09:08) topiramate Allergy (Verified 04/27/17 09:08) Home Medications: Medication Instructions Recorded Acet/Caffeine/Buta Fioricet 1 - 2 each PO Q4 PRN MDD 4 tabs in 02/07/17 [Fioricet (*)] 24 hours Diazepam [Valium 10 MG (*)] 10 mg PO HS PRN 02/07/17 Duloxetine HCl [Cymbalta] 30 mg PO HS 02/07/17 Gabapentin [Neurontin 300 MG (*)] 300 mg PO HS 02/07/17 HYDROmorphone HCL [Dilaudid 4 mg 2 - 4 mg PO Q4-6PRN PRN 02/07/17 (*)] LORAZEPAM [Ativan] 1 ml PO HS PRN MDD 45cc per month 02/07/17 Naloxone HCl 1 mg IJ AD PRN 02/07/17 Ondansetron Odt [Zofran Odt 4 mg 4 - 8 mg PO Q8H PRN 02/07/17 (*)] Promethazine HCl [Phenergan 25mg 25 mg PO BID PRN 02/07/17 (*)] Tamsulosin HCl [Flomax 0.4 MG (*)] 0.4 mg PO HS 02/07/17 rOPINIRole HCL [Ropinirole HCl] 4 - 8 mg PO DAILY PRN 02/07/17 Ondansetron Odt [Zofran Odt 4 mg 4 mg PO Q6 PRN #12 tab 04/27/17 (*)] Promethazine HCl 25 mg RC ACHS PRN #15 supp.rect 04/27/17 Medical Decision Making - Data Points Laboratory Results: Laboratory Results 04/27/17 09:30 04/27/17 09:30 04/27/17 04/27/17 09:30 09:30 WBC 8.46 10^3/uL 10^3/uL (3.80-9.50) RBC 5.03 10^6/uL 10^6/uL (4.40-6.38) Hgb 16.1 g/dL g/dL (13.7-17.5) Hct 46.4 % % (40.0-51.0) MCV 92.2 fL fL (81.5-99.8) MCH 32.0 pg pg (27.9-34.1) MCHC 34.7 g/dL g/dL (32.4-36.7) RDW 12.9 % % (11.5-15.2) Plt Count 207 10^3/uL 10^3/uL (150-400) MPV 9.2 fL fL (8.7-11.7) Neut % (Auto) 79.0 % H % (39.3-74.2) Lymph % (Auto) 11.9 % L % (15.0-45.0) Hendry % (Auto) 7.0 % % (4.5-13.0) Eos % (Auto) 1.2 % % (0.6-7.6) Baso % (Auto) 0.7 % % (0.3-1.7) Nucleat RBC Rel Count 0.0 % % (0.0-0.2) Absolute Neuts (auto) 6.68 10^3/uL H 10^3/uL (1.70-6.50) Absolute Lymphs (auto) 1.01 10^3/uL 10^3/uL (1.00-3.00) Absolute Monos (auto) 0.59 10^3/uL 10^3/uL (0.30-0.80) Absolute Eos (auto) 0.10 10^3/uL 10^3/uL (0.03-0.40) Absolute Basos (auto) 0.06 10^3/uL 10^3/uL (0.02-0.10) Absolute Nucleated RBC 0.00 10^3/uL 10^3/uL (0-0.01) Immature Gran % 0.2 % % (0.0-1.1) Immature Gran # 0.02 10^3/uL 10^3/uL (0.00-0.10) Sodium 142 mEq/L mEq/L (134-144) Potassium 4.2 mEq/L mEq/L (3.5-5.2) Chloride 106 mEq/L mEq/L (97-110) Carbon Dioxide 21 mEq/l L mEq/l (22-31) Anion Gap 15 mEq/L mEq/L (8-16) BUN 21 mg/dL mg/dL (7-23) Creatinine 1.0 mg/dL mg/dL (0.7-1.3) Estimated GFR > 60 Glucose 134 mg/dL H mg/dL (70-100) Calcium 10.2 mg/dL mg/dL (8.5-10.4) Total Bilirubin 0.9 mg/dL mg/dL (0.1-1.4) Conjugated Bilirubin 0.3 mg/dL mg/dL (0.0-0.5) Unconjugated Bilirubin 0.6 mg/dL mg/dL (0.0-1.1) AST 25 IU/L IU/L (17-59) ALT 31 IU/L IU/L (21-72) Alkaline Phosphatase 101 IU/L IU/L (38-126) Total Protein 8.0 g/dL g/dL (6.3-8.2) Albumin 4.9 g/dL g/dL (3.5-5.0) Lipase 393.0 IU/L H IU/L (23-300) Medications Given: Discontinued Medications Diphenhydramine HCl (Benadryl Injection) 25 mg IVP EDNOW ONE Stop: 04/27/17 11:25 Last Admin: 04/27/17 11:31 Dose: 25 mg Diphenhydramine HCl (Benadryl Injection) 25 mg IVP EDNOW ONE Stop: 04/27/17 13:03 Last Admin: 04/27/17 13:14 Dose: 25 mg Haloperidol Lactate (Haldol Injection) 2.5 mg IVP EDNOW ONE Stop: 04/27/17 09:43 Last Admin: 04/27/17 09:46 Dose: 2.5 mg Hydromorphone HCl (Dilaudid) 1 mg IVP EDNOW ONE Stop: 04/27/17 09:43 Last Admin: 04/27/17 09:47 Dose: 1 mg Hydromorphone HCl (Dilaudid) 1 mg IVP EDNOW ONE Stop: 04/27/17 11:08 Last Admin: 04/27/17 11:18 Dose: 1 mg Hydromorphone HCl (Dilaudid) 1 mg IVP EDNOW ONE Stop: 04/27/17 13:03 Last Admin: 04/27/17 13:14 Dose: 1 mg Sodium Chloride (Ns) 1,000 mls @ 0 mls/hr IV ONCE ONE; Wide Open PRN Reason: Protocol Stop: 04/27/17 09:24 Last Admin: 04/27/17 09:29 Dose: 1,000 mls Sodium Chloride (Ns) 1,000 mls @ 0 mls/hr IV ONCE ONE; Wide Open PRN Reason: Protocol Stop: 04/27/17 10:29 Last Admin: 04/27/17 10:32 Dose: 1,000 mls Ondansetron HCl (Zofran) 4 mg IVP EDNOW ONE Stop: 04/27/17 09:24 Last Admin: 04/27/17 09:30 Dose: 4 mg Ondansetron HCl (Zofran) 4 mg IVP EDNOW ONE Stop: 04/27/17 11:25 Last Admin: 04/27/17 11:31 Dose: 4 mg Promethazine HCl (Phenergan) 12.5 mg IVP ONCE ONE Stop: 04/27/17 09:25 Last Admin: 04/27/17 09:30 Dose: 12.5 mg Departure - Departure Disposition: Home, Routine, Self-Care Clinical Impression: Nausea and vomiting in adult patient Acute pancreatitis Qualifiers: Pancreatitis type: unspecified pancreatitis type Acute pancreatitis complication: no infection or necrosis Qualified Code(s): K85.90 - Acute pancreatitis without necrosis or infection, unspecified Chronic inflammation of pancreas Qualifiers: Pancreatitis type: alcohol induced Qualified Code(s): K86.0 - Alcohol-induced chronic pancreatitis Condition: Good Instructions: Pancreatitis (ED) Additional Instructions: 1. Clear liquids for the next 24-48 hours 2. Follow up with primary care physician and GI physician tomorrow morning 3. Return to the ER for any return of pain, nausea, vomiting, fever Referrals: John Xiao MD [Primary Care Provider] - As per Instructions Nader Adhikari [Medical Doctor] - As per Instructions Prescriptions: Ondansetron Odt [Zofran Odt 4 mg (*)] 4 mg PO Q6 PRN #12 tab PRN Reason: Nausea/Vomiting, Use 1st Promethazine HCl 25 mg RC ACHS PRN #15 supp.rect PRN Reason: Nausea/Vomiting, Use 2nd
[2017-04-27 09:38] LABS: % IMMATURE GRANULYOCYTES 0.2 % (0.0-1.1); ABSOLUTE IMMATURE GRANULOCYTES 0.02 10^3/uL (0.00-0.10); ADD DIFF? NO; ADD MORPH? NO; ADD SCAN? NO; ATYPICAL LYMPHOCYTE FLAG 0 (0-99); FRAGMENT RBC FLAG 0 (0-99); HEMATOCRIT 46.4 % (40.0-51.0); HEMOGLOBIN 16.1 g/dL (13.7-17.5); LEFT SHIFT FLG 10 (0-99); LIPEMIA HEMOLYSIS FLAG 90 (0-99); MEAN CELL HEMOGLOBIN CONCENTR. 34.7 g/dL (32.4-36.7); MEAN CELL VOLUME 92.2 fL (81.5-99.8); MEAN PLATELET VOLUME 9.2 fL (8.7-11.7); PLATELET CLUMPS FLAG 0 (0-99); PLATELET COUNT 207 10^3/uL (150-400); RED BLOOD CELL COUNT 5.03 10^6/uL (4.40-6.38); RED CELL DISTRIBUTION WIDTH 12.9 % (11.5-15.2)
[2017-04-27] MEDS ORDERED: HALOPERIDOL LACT 5 MG/ML INJ IVP ONE (09:42)
[2017-04-27] MEDS ORDERED: HYDROmorphONE/DILAUDID 1 MG/ML SYR IVP ONE ×3 (09:42→13:02)
[2017-04-27 10:09] LABS: ALANINE AMINOTRANSFERASE 31 IU/L (21-72); ALBUMIN 4.9 g/dL (3.5-5.0); ALKALINE PHOSPHATASE 101 IU/L (38-126); ANION GAP 15 mEq/L (8-16); ASPARTATE AMINOTRANSFERASE 25 IU/L (17-59); BILIRUBIN,TOTAL 0.9 mg/dL (0.1-1.4); BILIRUBIN-CONJUGATED 0.3 mg/dL (0.0-0.5); BILIRUBIN-UNCONJUGATED 0.6 mg/dL (0.0-1.1); CALCIUM 10.2 mg/dL (8.5-10.4); CARBON DIOXIDE 21 mEq/l (22-31); CHLORIDE 106 mEq/L (97-110); GLOMERULAR FILTRATION RATE > 60; GLUCOSE 134 mg/dL (70-100); POTASSIUM 4.2 mEq/L (3.5-5.2); SODIUM 142 mEq/L (134-144)
[2017-04-27 10:33] VITALS: RESP 16
[2017-04-27 13:40] VITALS: BP 103/63; PULSE 64; O2SAT 92
== END 2017-04-27 13:38 | disposition home or self-care (01) ==
DX: K86.0 Alcohol-induced chronic pancreatitis (principal); K85.90 Acute pancreatitis without necrosis or infection, unspecified; E86.9 Volume depletion, unspecified; R11.2 Nausea with vomiting, unspecified; F17.200 Nicotine dependence, unspecified, uncomplicated
CPT/HCPCS: 96374; J1170; J1200; J2405; J2550

== ENCOUNTER 2017-06-20 13:47 | Emergency (ER) | payer OTHER ==
[2017-06-20 13:51] VITALS: TEMP 97.5
[2017-06-20] MEDS ORDERED: HALOPERIDOL LACT 5 MG/ML INJ IVP ONE ×2 (14:07→17:59)
[2017-06-20] MEDS ORDERED: METOCLOPRAMIDE 10 MG/2 ML VIAL IVP ONE (14:07)
[2017-06-20] MEDS ORDERED: NS 1,000 ML IV ONE (14:08)
--- NOTE | 2017-06-20 14:11 | EDPHY ---
H & P Stated Complaint: Abd pain,n/v since this am; Time Seen by Provider: 06/20/17 13:56 HPI/ROS: CHIEF COMPLAINT: Nausea vomiting HISTORY OF PRESENT ILLNESS: The patient is a 61-year-old man with a history of cyclic vomiting as well as chronic pain syndrome and chronic pancreatitis from a history of alcohol abuse. He has not drank alcohol in 15 years. Also has history of appendectomy and cholecystectomy. He is treated at home with Zofran , Valium, gabapentin, Dilaudid, Ativan, Phenergan and Requip for his chronic pain and vomiting. He states that around 8 o'clock this morning he began vomiting. No blood. No diarrhea. No fever. He complains of diffuse abdominal pain. His states that he had tapered off of the Requip last week because they felt like it was making him trench. He does use marijuana daily but his states that he has cut down a lot on the amount . REVIEW OF SYSTEMS: Constitutional: denies: chills, fever, recent illness, recent injury EENTM: denies: blurred vision, double vision, nose congestion Respiratory: denies: cough, shortness of breath Cardiac: denies: chest pain, irregular heart rate, lightheadedness, palpitations Gastrointestinal/Abdominal: See HPI Genitourinary: denies: dysuria, frequency, hematuria, pain Musculoskeletal: denies: joint pain, muscle pain Skin: denies: lesions, rash, jaundice, bruising Neurological: denies: headache, numbness, paresthesia, tingling, dizziness, weakness Hematologic/Lymphatic: denies: blood clots, easy bleeding, easy bruising Immunologic/allergic: denies: HIV/AIDS, transplant EXAM: GENERAL: Thin, moderate distress HEAD: Atraumatic, normocephalic. EYES: Pupils equal round and reactive to light, extraocular movements intact, sclera anicteric, conjunctiva are normal. ENT: TMs normal, nares patent, oropharynx clear without exudates. Moist mucous membranes. NECK: Normal range of motion, supple without lymphadenopathy or JVD. LUNGS: Breath sounds clear to auscultation bilaterally and equal. No wheezes rales or rhonchi. HEART: Regular rate and rhythm without murmurs, rubs or gallops. ABDOMEN: Diffuse pain and tenderness. BACK: No CVA tenderness, no spinal tenderness, step-offs or deformities EXTREMITIES: Normal range of motion, no pitting or edema. No clubbing or cyanosis. NEUROLOGICAL: Cranial nerves II through XII grossly intact. Normal speech, normal gait. 5/5 strength, normal movement in all extremities, normal sensation PSYCH: Normal mood, normal affect. SKIN: Warm, dry, normal turgor, no visible rashes or lesions. Source: Patient Exam Limitations: No limitations - Personal History Current Tetanus Diphtheria and Acellular Pertussis (TDAP): Yes Tetanus Vaccine Date: < 10 YEARS - Medical/Surgical History Hx Asthma: No Hx Chronic Respiratory Disease: No Hx Diabetes: No Hx Cardiac Disease: No Hx Renal Disease: No Hx Cirrhosis: Yes Hx Alcoholism: Yes Hx HIV/AIDS: No Hx Splenectomy or Spleen Trauma: No Other PMH: cyclic vomitting, HEP C/treatment completed, CHRONIC PANCREATITIS, AYDEE CONSTRICTURE, chronic back pain, TONSILLECTOMY, APPY, ORTHO SURGERY, CHOLECYSTECTOMY - Family History Significant Family History: No pertinent family hx - Social History Smoking Status: Current every day smoker Alcohol Use: Sober Drug Use: Marijuana Constitutional: Initial Vital Signs Temperature (C) 36.4 C 06/20/17 13:48 Heart Rate 53 L 06/20/17 13:48 Respiratory Rate 16 06/20/17 13:48 Blood Pressure 136/72 H 06/20/17 13:48 O2 Sat (%) 99 06/20/17 13:48 O2 Delivery Mode Room Air Allergies/Adverse Reactions: codeine Allergy (Severe, Verified 06/20/17 13:48) Vomiting hydrocodone Allergy (Severe, Verified 06/20/17 13:48) Vomiting oxycodone [Oxycodone] Allergy (Severe, Verified 06/20/17 13:48) Vomiting clonazepam Allergy (Verified 06/20/17 13:48) tizanidine Allergy (Verified 06/20/17 13:48) topiramate Allergy (Verified 06/20/17 13:48) Home Medications: Medication Instructions Recorded Acet/Caffeine/Buta Fioricet 1 - 2 each PO Q4 PRN MDD 4 tabs in 02/07/17 [Fioricet (*)] 24 hours Diazepam [Valium 10 MG (*)] 10 mg PO HS PRN 02/07/17 Duloxetine HCl [Cymbalta] 30 mg PO HS 02/07/17 Gabapentin [Neurontin 300 MG (*)] 300 mg PO HS 02/07/17 HYDROmorphone HCL [Dilaudid 4 mg 2 - 4 mg PO Q4-6PRN PRN 02/07/17 (*)] LORAZEPAM [Ativan] 1 ml PO HS PRN MDD 45cc per month 02/07/17 Naloxone HCl 1 mg IJ AD PRN 02/07/17 Ondansetron Odt [Zofran Odt 4 mg 4 - 8 mg PO Q8H PRN 02/07/17 (*)] Promethazine HCl [Phenergan 25mg 25 mg PO BID PRN 02/07/17 (*)] Tamsulosin HCl [Flomax 0.4 MG (*)] 0.4 mg PO HS 02/07/17 rOPINIRole HCL [Ropinirole HCl] 4 - 8 mg PO DAILY PRN 02/07/17 Ondansetron Odt [Zofran Odt 4 mg 4 mg PO Q6 PRN #12 tab 04/27/17 (*)] Promethazine HCl 25 mg RC ACHS PRN #15 supp.rect 04/27/17 Medical Decision Making ED Course/Re-evaluation: The patient has required repeated doses of medications. His is requesting narcotics. We discussed that this is a nonnarcotic emergency department. We will try Toradol and he is currently receiving lidocaine. 6 p.m. the patient had been asleep for some time and feels well. He was no not retching until his returned to the room and woke him up, he began retching again. 6:45 p.m. the patient and his are asking to go home. He is feeling much better. He has his prescriptions and does not require more. Differential Diagnosis: Partial list of the Differential diagnosis considered include but were not limited to; cyclic vomiting, pancreatitis and although unlikely based on the history and physical exam, I also considered obstruction, ischemia, volvulus. I discussed these differential diagnoses and the plan with the patient as well as the usual and expected course. The patient understands that the diagnosis is provisional and that in medicine we are not always correct and that further workup is often warranted. Usual and customary warnings were given. All of the patient's questions were answered. The patient was instructed to return to the emergency department should the symptoms at all worsen or return, otherwise to followup with the physician as we discussed. - Data Points Laboratory Results: Laboratory Results 06/20/17 14:20 06/20/17 14:20 Medications Given: Discontinued Medications Diphenhydramine HCl (Benadryl Injection) 25 mg IVP EDNOW ONE Stop: 06/20/17 14:08 Last Admin: 06/20/17 14:18 Dose: 25 mg Haloperidol Lactate (Haldol Injection) 2.5 mg IVP EDNOW ONE Stop: 06/20/17 14:08 Last Admin: 06/20/17 14:19 Dose: 2.5 mg Haloperidol Lactate (Haldol Injection) 2.5 mg IVP EDNOW ONE Stop: 06/20/17 18:00 Last Admin: 06/20/17 18:10 Dose: 2.5 mg Sodium Chloride (Ns) 1,000 mls @ 0 mls/hr IV EDNOW ONE; Wide Open PRN Reason: Protocol Stop: 06/20/17 14:09 Last Admin: 06/20/17 14:18 Dose: 1,000 mls Lidocaine HCl 70 mg/ Sodium (Chloride) 107 mls @ 600 mls/hr IV EDNOW ONE Stop: 06/20/17 16:45 Last Admin: 06/20/17 17:00 Dose: 107 mls Ketamine HCl (Ketamine) 13.6 mg 0.2 mg/kg (13.6 mg) IVP EDNOW ONE Stop: 06/20/17 15:01 Last Admin: 06/20/17 15:03 Dose: 13.6 mg Ketorolac Tromethamine (Toradol) 30 mg IVP EDNOW ONE Stop: 06/20/17 17:07 Last Admin: 06/20/17 17:17 Dose: 30 mg Metoclopramide HCl (Reglan Injection) 10 mg IVP EDNOW ONE Stop: 06/20/17 14:08 Last Admin: 06/20/17 14:19 Dose: 10 mg Departure - Departure Disposition: Home, Routine, Self-Care Clinical Impression: Cyclic vomiting syndrome Qualifiers: Vomiting Intractability: non-intractable Nausea presence: with nausea Qualified Code(s): G43.A0 - Cyclical vomiting, not intractable Condition: Fair Instructions: Acute Nausea and Vomiting (ED) Referrals: John Xiao MD [Primary Care Provider] - 1-2 days without fail
[2017-06-20 14:26] LABS: % IMMATURE GRANULYOCYTES 0.2 % (0.0-1.1); ABSOLUTE IMMATURE GRANULOCYTES 0.02 10^3/uL (0.00-0.10); ADD DIFF? NO; ADD MORPH? NO; ADD SCAN? NO; ATYPICAL LYMPHOCYTE FLAG 0 (0-99); FRAGMENT RBC FLAG 0 (0-99); HEMATOCRIT 44.8 % (40.0-51.0); HEMOGLOBIN 15.6 g/dL (13.7-17.5); LEFT SHIFT FLG 0 (0-99); LIPEMIA HEMOLYSIS FLAG 90 (0-99); MEAN CELL HEMOGLOBIN CONCENTR. 34.8 g/dL (32.4-36.7); MEAN CELL VOLUME 91.8 fL (81.5-99.8); MEAN PLATELET VOLUME 9.3 fL (8.7-11.7); PLATELET CLUMPS FLAG 0 (0-99); PLATELET COUNT 196 10^3/uL (150-400); RED BLOOD CELL COUNT 4.88 10^6/uL (4.40-6.38); RED CELL DISTRIBUTION WIDTH 12.2 % (11.5-15.2)
[2017-06-20 14:52] LABS: ALANINE AMINOTRANSFERASE 39 IU/L (21-72); ALBUMIN 4.6 g/dL (3.5-5.0); ALKALINE PHOSPHATASE 83 IU/L (38-126); ANION GAP 12 mEq/L (8-16); ASPARTATE AMINOTRANSFERASE 25 IU/L (17-59); BILIRUBIN,TOTAL 0.7 mg/dL (0.1-1.4); BILIRUBIN-CONJUGATED 0.2 mg/dL (0.0-0.5); BILIRUBIN-UNCONJUGATED 0.5 mg/dL (0.0-1.1); CARBON DIOXIDE 22 mEq/l (22-31); CHLORIDE 102 mEq/L (97-110); CREATININE 0.9 mg/dL (0.7-1.3); GLOMERULAR FILTRATION RATE > 60; GLUCOSE 125 mg/dL (70-100); POTASSIUM 4.2 mEq/L (3.5-5.2); SODIUM 136 mEq/L (134-144); TOTAL PROTEIN 7.6 g/dL (6.3-8.2)
[2017-06-20] MEDS ORDERED: KETAMINE 100 MG/10 ML SYR IVP ONE (15:00)
[2017-06-20] MEDS ORDERED: NS IV ONE (16:35)
[2017-06-20] MEDS ORDERED: LIDOCAINE IV ONE (16:35)
[2017-06-20] MEDS ORDERED: KETOROLAC 30 MG/1 ML SDV IVP ONE (17:06)
[2017-06-20 19:03] VITALS: BP 146/62; PULSE 53; RESP 16; O2SAT 96
== END 2017-06-20 19:03 | disposition home or self-care (01) ==
DX: G43.A0 Cyclical vomiting, in migraine, not intractable (principal); E86.9 Volume depletion, unspecified; F17.200 Nicotine dependence, unspecified, uncomplicated
CPT/HCPCS: 96374; J1200; J1885; J2765

== ENCOUNTER 2017-07-20 12:20 | Observation (INO) | payer OTHER ==
[2017-07-20] MEDS ORDERED: NS 1,000 ML IV ONE ×3 (12:37→13:01)
[2017-07-20] MEDS ORDERED: ONDANSETRON 4 MG/2 ML VIAL IVP ONE (12:37)
--- NOTE | 2017-07-20 12:54 | EDPHY ---
H & P Stated Complaint: N/V and abdo pain since midnight - HX of pancreatitis Time Seen by Provider: 07/20/17 12:50 - Personal History Current Tetanus Diphtheria and Acellular Pertussis (TDAP): Unsure Tetanus Vaccine Date: < 10 YEARS - Medical/Surgical History Hx Asthma: No Hx Chronic Respiratory Disease: No Hx Diabetes: No Hx Cardiac Disease: No Hx Renal Disease: No Hx Cirrhosis: Yes Hx Alcoholism: Yes Hx HIV/AIDS: No Hx Splenectomy or Spleen Trauma: No Other PMH: cyclic vomitting, HEP C/treatment completed, CHRONIC PANCREATITIS, AYDEE CONSTRICTURE, chronic back pain, TONSILLECTOMY, APPY, ORTHO SURGERY, CHOLECYSTECTOMY - Social History Smoking Status: Current every day smoker Constitutional: Initial Vital Signs Temperature (C) 36.4 C 07/20/17 12:24 Heart Rate 47 L 07/20/17 12:24 Respiratory Rate 18 07/20/17 12:24 Blood Pressure 154/79 H 07/20/17 12:24 O2 Sat (%) 99 07/20/17 12:24 O2 Delivery Mode Room Air Allergies/Adverse Reactions: codeine Allergy (Severe, Verified 06/20/17 13:48) Vomiting hydrocodone Allergy (Severe, Verified 06/20/17 13:48) Vomiting oxycodone [Oxycodone] Allergy (Severe, Verified 06/20/17 13:48) Vomiting clonazepam Allergy (Verified 06/20/17 13:48) tizanidine Allergy (Verified 06/20/17 13:48) topiramate Allergy (Verified 06/20/17 13:48) Home Medications: Medication Instructions Recorded Acet/Caffeine/Buta Fioricet 1 - 2 each PO Q4 PRN MDD 4 tabs in 02/07/17 [Fioricet (*)] 24 hours Diazepam [Valium 10 MG (*)] 10 mg PO HS PRN 02/07/17 Duloxetine HCl [Cymbalta] 30 mg PO HS 02/07/17 Gabapentin [Neurontin 300 MG (*)] 300 mg PO HS 02/07/17 HYDROmorphone HCL [Dilaudid 4 mg 2 - 4 mg PO Q4-6PRN PRN 02/07/17 (*)] LORAZEPAM [Ativan] 1 ml PO HS PRN MDD 45cc per month 02/07/17 Naloxone HCl 1 mg IJ AD PRN 02/07/17 Ondansetron Odt [Zofran Odt 4 mg 4 - 8 mg PO Q8H PRN 02/07/17 (*)] Promethazine HCl [Phenergan 25mg 25 mg PO BID PRN 02/07/17 (*)] Tamsulosin HCl [Flomax 0.4 MG (*)] 0.4 mg PO HS 02/07/17 rOPINIRole HCL [Ropinirole HCl] 4 - 8 mg PO DAILY PRN 02/07/17 Ondansetron Odt [Zofran Odt 4 mg 4 mg PO Q6 PRN #12 tab 04/27/17 (*)] Promethazine HCl 25 mg RC ACHS PRN #15 supp.rect 04/27/17 Medical Decision Making ED Course/Re-evaluation: CHIEF COMPLAINT: Epigastric pain, vomiting HISTORY OF PRESENT ILLNESS: The patient is a 61 y/o male with a history of pancreatitis complaining of epigastric pain onset a few days ago and vomiting onset early this morning. He does not know what the cause of his pancreatitis is and reports he's had recurrent episodes like this for over 10 years. He has a prior history of alcohol abuse, but denies alcohol use for several years. He complains of associated fever, diarrhea. He was able to eat and drink last night. REVIEW OF SYSTEMS: A 10 point review of systems was performed and is negative with the exception of the elements mentioned in the history of present illness. PHYSICAL EXAM: HR, BP, O2 Sat, RR. Temp noted General Appearance: Alert, well hydrated, appropriate, and non-toxic appearing. Head: Atraumatic without scalp tenderness or obvious injury Eyes: Pupils equal, round, reactive to light and accommodation, EOMI, no trauma , no injection. Nose: Atraumatic, no rhinorrhea, clear. Throat: There is no erythema or exudates, no lesions, normal tonsils, mucus membranes moist. Neck: Supple, nontender, no lymphadenopathy. Respiratory: No retractions, no distress, no wheezes, and no accessory muscle use. Lungs are clear to auscultation bilaterally. Cardiovascular: Regular rate and rhythm, no murmurs, rubs, or gallops. Good capillary refill all extremities. Gastrointestinal: Abdomen is soft, mild epigastric tenderness, non-distended, no masses, no rebound, no guarding, no peritoneal signs. Musculoskeletal: Normal active ROM of all extremities, atraumatic. Neurological: Alert, appropriate, and interactive. The patient has non-focal cranial nerves, motor, sensory, and cerebellar exam. Skin: No rashes, good turgor, no nodules on palpation. Past medical history: Pancreatitis Past surgical history: Cholecystectomy Family history: Social history: Reports he's been sober for several years. Family member at bedside. DIFFERENTIAL DIAGNOSIS: The differential diagnosis for the patient's abdominal pain included but was not limited to appendicitis, cholecystitis, hernias, testicular torsion, gastritis, and urinary tract infection. MEDICAL DECISION MAKING: This is a 61 y/o male with a long history of pancreatitis who presents with a few-day history of epigastric abdominal pain and vomiting beginning this morning. He has a benign abdominal exam. He's had extensive work ups for this in the past and is here for symptom management only. Plan for IV, labs, and pain management. 4mg IV Zofran, 30mg IV Toradol, 5mg IV Ketamine, and 1L IV NS administered. Patient has refused Ketamine. 1mg IV Dilaudid administered. Spoke with hospitalist service. Dr. Rice accepts admission for [id number] pancreatitis. - Data Points Laboratory Results: Laboratory Results 07/20/17 12:55 07/20/17 12:55 07/20/17 07/20/17 07/20/17 12:55 12:55 12:55 WBC 6.60 10^3/uL 10^3/uL (3.80-9.50) RBC 5.08 10^6/uL 10^6/uL (4.40-6.38) Hgb 16.1 g/dL g/dL (13.7-17.5) Hct 45.9 % % (40.0-51.0) MCV 90.4 fL fL (81.5-99.8) MCH 31.7 pg pg (27.9-34.1) MCHC 35.1 g/dL g/dL (32.4-36.7) RDW 12.3 % % (11.5-15.2) Plt Count 204 10^3/uL 10^3/uL (150-400) MPV 9.1 fL fL (8.7-11.7) Neut % (Auto) 86.3 % H % (39.3-74.2) Lymph % (Auto) 8.5 % L % (15.0-45.0) [place] % (Auto) 3.8 % L % (4.5-13.0) Eos % (Auto) 0.6 % % (0.6-7.6) Baso % (Auto) 0.5 % % (0.3-1.7) Nucleat RBC Rel Count 0.0 % % (0.0-0.2) Absolute Neuts (auto) 5.70 10^3/uL 10^3/uL (1.70-6.50) Absolute Lymphs (auto) 0.56 10^3/uL L 10^3/uL (1.00-3.00) Absolute Monos (auto) 0.25 10^3/uL L 10^3/uL (0.30-0.80) Absolute Eos (auto) 0.04 10^3/uL 10^3/uL (0.03-0.40) Absolute Basos (auto) 0.03 10^3/uL 10^3/uL (0.02-0.10) Absolute Nucleated RBC 0.00 10^3/uL 10^3/uL (0-0.01) Immature Gran % 0.3 % % (0.0-1.1) Immature Gran # 0.02 10^3/uL 10^3/uL (0.00-0.10) PT 13.3 SEC SEC (12.0-15.0) INR 1.02 (0.83-1.16) APTT 27.4 SEC SEC (23.0-38.0) Sodium 139 mEq/L mEq/L (134-144) Potassium 4.0 mEq/L mEq/L (3.5-5.2) Chloride 106 mEq/L mEq/L (97-110) Carbon Dioxide 19 mEq/l L mEq/l (22-31) Anion Gap 14 mEq/L mEq/L (8-16) BUN 15 mg/dL mg/dL (7-23) Creatinine 0.7 mg/dL mg/dL (0.7-1.3) Estimated GFR > 60 Glucose 136 mg/dL H mg/dL (70-100) Calcium 9.8 mg/dL mg/dL (8.5-10.4) Total Bilirubin 0.7 mg/dL mg/dL (0.1-1.4) Conjugated Bilirubin 0.3 mg/dL mg/dL (0.0-0.5) Unconjugated Bilirubin 0.4 mg/dL mg/dL (0.0-1.1) AST 25 IU/L IU/L (17-59) ALT 40 IU/L IU/L (21-72) Alkaline Phosphatase 89 IU/L IU/L (38-126) Total Protein 7.4 g/dL g/dL (6.3-8.2) Albumin 4.7 g/dL g/dL (3.5-5.0) Lipase 346 IU/L H IU/L (23-300) Medications Given: Discontinued Medications Hydromorphone HCl (Dilaudid) 1 mg IVP EDNOW ONE Stop: 07/20/17 13:16 Last Admin: 07/20/17 13:19 Dose: 1 mg Sodium Chloride (Ns) 1,000 mls @ 0 mls/hr IV ONCE ONE; Wide Open PRN Reason: Protocol Stop: 07/20/17 12:38 Last Admin: 07/20/17 12:51 Dose: 1,000 mls Ketorolac Tromethamine (Toradol) 30 mg IVP EDNOW ONE Stop: 07/20/17 13:01 Last Admin: 07/20/17 13:13 Dose: 30 mg Ondansetron HCl (Zofran) 4 mg IVP EDNOW ONE Stop: 07/20/17 12:38 Last Admin: 07/20/17 12:51 Dose: 4 mg Departure - Departure Disposition: [facility] Inpatient Acute Clinical Impression: Pancreatitis Qualifiers: Chronicity: chronic Pancreatitis type: other Qualified Code(s): K86.1 - Other chronic pancreatitis Condition: Fair Referrals: John Xiao MD [Primary Care Provider] - As per Instructions Report Scribed for: Krishna Crawley Report Scribed by: Maryam Kelley Date of Report: 07/20/17 Time of Report: 13:02
[2017-07-20] MEDS ORDERED: KETAMINE 100 MG/10 ML SYR IVP ONE (13:00)
[2017-07-20] MEDS ORDERED: KETOROLAC 30 MG/1 ML SDV IVP ONE (13:00)
[2017-07-20 13:04] LABS: % IMMATURE GRANULYOCYTES 0.3 % (0.0-1.1); ABSOLUTE IMMATURE GRANULOCYTES 0.02 10^3/uL (0.00-0.10); ADD DIFF? NO; ADD MORPH? NO; ADD SCAN? NO; ATYPICAL LYMPHOCYTE FLAG 0 (0-99); FRAGMENT RBC FLAG 0 (0-99); HEMATOCRIT 45.9 % (40.0-51.0); HEMOGLOBIN 16.1 g/dL (13.7-17.5); LEFT SHIFT FLG 20 (0-99); LIPEMIA HEMOLYSIS FLAG 90 (0-99); MEAN CELL HEMOGLOBIN 31.7 pg (27.9-34.1); MEAN CELL HEMOGLOBIN CONCENTR. 35.1 g/dL (32.4-36.7); MEAN CELL VOLUME 90.4 fL (81.5-99.8); MEAN PLATELET VOLUME 9.1 fL (8.7-11.7); PLATELET CLUMPS FLAG 20 (0-99); PLATELET COUNT 204 10^3/uL (150-400); RED BLOOD CELL COUNT 5.08 10^6/uL (4.40-6.38); RED CELL DISTRIBUTION WIDTH 12.3 % (11.5-15.2)
[2017-07-20 13:12] LABS: INR 1.02 (0.83-1.16); PROTIME(PATIENT) 13.3 SEC (12.0-15.0)
[2017-07-20 13:13] LABS: APTT 27.4 SEC (23.0-38.0)
[2017-07-20] MEDS ORDERED: HYDROmorphONE/DILAUDID 1 MG/ML INJ IVP ONE (13:15)
[2017-07-20 13:21] LABS: ALANINE AMINOTRANSFERASE 40 IU/L (21-72); ALBUMIN 4.7 g/dL (3.5-5.0); ALKALINE PHOSPHATASE 89 IU/L (38-126); ANION GAP 14 mEq/L (8-16); ASPARTATE AMINOTRANSFERASE 25 IU/L (17-59); BILIRUBIN,TOTAL 0.7 mg/dL (0.1-1.4); BILIRUBIN-CONJUGATED 0.3 mg/dL (0.0-0.5); BILIRUBIN-UNCONJUGATED 0.4 mg/dL (0.0-1.1); CALCIUM 9.8 mg/dL (8.5-10.4); CARBON DIOXIDE 19 mEq/l (22-31); CHLORIDE 106 mEq/L (97-110); CREATININE 0.7 mg/dL (0.7-1.3); GLOMERULAR FILTRATION RATE > 60; GLUCOSE 136 mg/dL (70-100); SODIUM 139 mEq/L (134-144); TOTAL PROTEIN 7.4 g/dL (6.3-8.2)
[2017-07-20] MEDS ORDERED: PROMETHAZINE HCL 25 MG/ML INJ IVP PRN (13:57)
[2017-07-20] MEDS ORDERED: ONDANSETRON DISINTEGRATING 4 MG TAB PO PRN (14:03)
[2017-07-20] MEDS ORDERED: ONDANSETRON 4 MG/2 ML VIAL IVP PRN (14:03)
[2017-07-20] MEDS ORDERED: HYDROmorphONE/DILAUDID 1 MG/ML INJ IVP PRN (14:03)
[2017-07-20] MEDS ORDERED: LORazepam 2 MG/ML INJ IVP PRN (14:03)
[2017-07-20] MEDS ORDERED: ACETAMINOPHEN 325 MG TAB PO PRN (14:03)
[2017-07-20] MEDS ORDERED: ACET/CAFFEINE/BUTA FIORICET 1 EACH TAB PO PRN (14:10)
[2017-07-20] MEDS ORDERED: DIAZEPAM 10 MG TAB PO PRN (14:10)
--- NOTE | 2017-07-20 14:52 | GHP ---
[f rep st] HISTORY AND PHYSICAL DATE OF ADMISSION: 07/20/2017 CHIEF COMPLAINT: Nausea, vomiting, abdominal pain. HISTORY OF PRESENT ILLNESS: This is a 61-year-old man, who presents with nausea , vomiting, and abdominal pain. This started midnight before the day of presentation. He has a history of chronic pancreatitis versus cyclic vomiting syndrome. He has vomited about 4 times. It has been nonbloody. It has been bilious. Pain is on the left side of his abdomen radiating to his back. This is consistent with his previous episodes. Last abdominal imaging with an ultrasound 5 months ago, which was relatively unremarkable. He had a CT of his abdomen done 2 months prior to that, also unremarkable. He has had a GI evaluation. He had an endoscopy in 2011, which showed erythematous gastric mucosa, nodular mucosa in the cardia, and a mildly dilated pancreatic duct. He feels that this episode is just like his previous. PAST MEDICAL/SURGICAL HISTORY: 1. Chronic pancreatitis. 2. Cyclic vomiting syndrome. 3. BPH. 4. Chronic back and abdominal pain. 5. Appendectomy. 6. Cholecystectomy. 7. Tonsillectomy. MEDICATIONS: Please see medication reconciliation. ALLERGIES: Codeine, hydrocodone, oxycodone, clonazepam, topiramate. FAMILY HISTORY: Reviewed, not pertinent. SOCIAL HISTORY: Quit smoking. He has not drank alcohol for 10 years. He does use marijuana. REVIEW OF SYSTEMS: A 10-point review of systems is conducted and is negative except per HPI. PHYSICAL EXAM: VITAL SIGNS: Blood pressure 155/64, heart rate 58, respiration rate 18, saturating 100% on 2 L. Temperature is 36.4. GENERAL: The patient is a pleasant man, who appears quite uncomfortable, actively vomiting. HEENT: Shows him to be normocephalic, atraumatic. CARDIOVASCULAR: Shows a regular rate and rhythm. No murmurs, rubs, or gallops. PULMONARY: Lungs clear to auscultation bilaterally. ABDOMEN: Shows him to be soft. He is quite tender to palpation, mostly on the left-handed side. There are no masses appreciated. SKIN: Shows no rash. : No [place]. NEUROLOGIC: Shows him to be alert and oriented x3. He is moving all extremities. PSYCHIATRIC: Shows normal mood and affect. LABORATORY DATA: CBC is normal. INR is 1. Basic metabolic panel is normal. Lipase 264. Glucose 136. DATA: I reviewed his chart including old imaging per HPI. IMPRESSION AND PLAN: 61-year-old man with likely chronic pancreatitis: 1. Nausea, vomiting, abdominal pain consistent with his previous episodes. I do not think he needs any other imaging right now, though if he worsens would consider this. Will treat him supportively for both pancreatitis, as well as cyclic vomiting syndrome, with IV hydration, IV narcotics. Keep him n.p.o. Will follow his clinical course. Will also provide antiemetics. 2. Benign prostatic hypertrophy. Flomax. 3. Chronic pain. Cymbalta. /[id number]/MODL MTDD
[2017-07-20] MEDS: NS 1,000 ML IV SCH (15:05)
[2017-07-20] MEDS: HYDROmorphONE/DILAUDID 4 MG TAB PO SCH (15:12)
[2017-07-20] MEDS ORDERED: LORazepam 1 MG/0.5 ML UDSYR PO PRN (15:15)
[2017-07-20] MEDS: PANTOPRAZOLE SODIUM 40 MG in NS 100 ML IV SCH ×2 (15:16→21:23)
[2017-07-20] MEDS ORDERED: NALOXONE HCL 0.4 MG/ML INJ IVP PRN (18:04)
[2017-07-20] MEDS: HYDROmorphONE/DILAUDID 6 MG/30 ML PCA IV PRN (18:12)
[2017-07-20] MEDS: DULoxetine 30 MG CAP PO SCH (21:21)
[2017-07-20] MEDS: TAMSULOSIN HCL 0.4 MG CAP PO SCH (21:21)
[2017-07-20] MEDS: GABAPENTIN 300 MG CAP PO SCH (21:21)
[2017-07-21] MEDS: NS 1,000 ML IV SCH ×3 (00:41→18:29)
[2017-07-21] MEDS: HYDROmorphONE/DILAUDID 6 MG/30 ML PCA IV PRN ×3 (00:43→15:26)
[2017-07-21 05:46] LABS: % IMMATURE GRANULYOCYTES 0.3 % (0.0-1.1); ABSOLUTE IMMATURE GRANULOCYTES 0.03 10^3/uL (0.00-0.10); ADD DIFF? NO; ADD MORPH? NO; ADD SCAN? NO; ATYPICAL LYMPHOCYTE FLAG 0 (0-99); FRAGMENT RBC FLAG 0 (0-99); HEMATOCRIT 39.8 % (40.0-51.0); HEMOGLOBIN 13.7 g/dL (13.7-17.5); LEFT SHIFT FLG 0 (0-99); LIPEMIA HEMOLYSIS FLAG 90 (0-99); MEAN CELL HEMOGLOBIN 32.4 pg (27.9-34.1); MEAN CELL HEMOGLOBIN CONCENTR. 34.4 g/dL (32.4-36.7); MEAN CELL VOLUME 94.1 fL (81.5-99.8); MEAN PLATELET VOLUME 9.3 fL (8.7-11.7); PLATELET CLUMPS FLAG 0 (0-99); PLATELET COUNT 169 10^3/uL (150-400); RED BLOOD CELL COUNT 4.23 10^6/uL (4.40-6.38); RED CELL DISTRIBUTION WIDTH 12.7 % (11.5-15.2)
[2017-07-21 05:59] LABS: ALANINE AMINOTRANSFERASE 36 IU/L (21-72); ALBUMIN 2.9 g/dL (3.5-5.0); ALKALINE PHOSPHATASE 58 IU/L (38-126); ANION GAP 8 mEq/L (8-16); ASPARTATE AMINOTRANSFERASE 21 IU/L (17-59); BILIRUBIN,TOTAL 0.5 mg/dL (0.1-1.4); CALCIUM 8.3 mg/dL (8.5-10.4); CARBON DIOXIDE 26 mEq/l (22-31); CHLORIDE 110 mEq/L (97-110); CREATININE 0.8 mg/dL (0.7-1.3); GLOMERULAR FILTRATION RATE > 60; GLUCOSE 85 mg/dL (70-100); SODIUM 144 mEq/L (134-144); TOTAL PROTEIN 5.1 g/dL (6.3-8.2)
[2017-07-21] MEDS: PANTOPRAZOLE SODIUM 40 MG in NS 100 ML IV SCH ×2 (09:38→20:26)
[2017-07-21] MEDS: ENOXAPARIN 40 MG/0.4 ML SYR SC SCH (09:38)
--- NOTE | 2017-07-21 11:21 | ASMTCMCOM ---
CM Note CM Note Notes: Reviewed chart. Pt admitted w/ N/V/abd pain w/ hx of chronic pancreatitis vs cyclic vomiting syndrome. Hx also includes BPH, chronic back/abd pain, appy, peggy and tonsillectomy. Pt has a hx of ETOH use, but hasn't had a drink in 10 yrs; currently uses Marijuana. Pt lives w/ his . Anticipate pt will likely d/c home independently when medically stable. CM will cont to follow. Date Signed: 07/21/2017 11:20 AM Electronically Signed By:Rosa Braxton RN
--- NOTE | 2017-07-21 12:41 | HOSPPROG ---
Hospitalist Progress Note Assessment/Plan: 61 yo M w chronic abd pain here w nausea, vomiting abd pain: improved not clearly pancreatitis advance diet ?cannabis hyperemesis: he feels unlikely follow nausea: improved proph: lmwh dispo: pending home if tolerates clears Subjective: abd pain improved. wishes to try to eat Objective: Vital Signs Temp Pulse Resp BP Pulse Ox 36.7 C 56 L 16 118/54 L 95 07/21/17 10:00 07/21/17 10:00 07/21/17 10:00 07/21/17 10:00 07/21/17 10:00 Laboratory Results 07/21/17 05:07 07/21/17 05:07 07/20/17 07/21/17 07/22/17 05:59 05:59 05:59 Intake Total 2100 Output Total 400 Balance 1700 PT 13.3 SEC (12.0-15.0) 07/20/17 12:55 INR 1.02 (0.83-1.16) 07/20/17 12:55 - Physical Exam Constitutional: no apparent distress, appears nourished Eyes: PERRL, anicteric sclera Ears, Nose, Mouth, Throat: moist mucous membranes, hearing normal Cardiovascular: regular rate and rhythym, no murmur, rub, or gallop Respiratory: no respiratory distress, no rales or rhonchi Gastrointestinal: normoactive bowel sounds, soft, non-tender abdomen, No guarding, No rebound Genitourinary: no bladder fullness, No watts in urethra Skin: warm, normal color Musculoskeletal: full muscle strength Neurologic: AAOx3 ICD10 Worksheet Patient Problems: Problems Problem Status Onset Pancreatitis Acute Abdominal pain Acute Acute pancreatitis Acute Cyclic vomiting syndrome Acute Nausea & vomiting Acute Pancreatitis, acute Acute Vomiting Acute
[2017-07-21] MEDS ORDERED: oxyCODONE IR 5 MG TAB PO PRN (16:52)
[2017-07-21] MEDS: HYDROmorphONE/DILAUDID 4 MG TAB PO SCH (20:21)
[2017-07-21] MEDS: DULoxetine 30 MG CAP PO SCH (20:25)
[2017-07-21] MEDS: GABAPENTIN 300 MG CAP PO SCH (20:25)
[2017-07-21] MEDS: TAMSULOSIN HCL 0.4 MG CAP PO SCH (20:25)
[2017-07-21] MEDS ORDERED: DIAZEPAM 5 MG TAB PO PRN (22:44)
[2017-07-22] MEDS: HYDROmorphONE/DILAUDID 4 MG TAB PO SCH ×2 (02:24→06:18)
[2017-07-22] MEDS: NS 1,000 ML IV SCH (02:57)
[2017-07-22] MEDS: ENOXAPARIN 40 MG/0.4 ML SYR SC SCH (10:00)
[2017-07-22] MEDS: PANTOPRAZOLE SODIUM 40 MG in NS 100 ML IV SCH (10:16)
--- NOTE | 2017-07-22 10:40 | HOSPPROG ---
Hospitalist Progress Note Assessment/Plan: 61 yo M w chronic abd pain here w nausea, vomiting abd pain: improved not clearly pancreatitis advance diet ?cannabis hyperemesis: he feels unlikely follow nausea: improved proph: lmwh dispo: home today > 30 minutes Subjective: eating. pain improved Objective: Vital Signs Temp Pulse Resp BP Pulse Ox 36.9 C 48 L 16 139/66 H 96 07/22/17 07:39 07/22/17 07:39 07/22/17 07:39 07/22/17 07:39 07/22/17 07:39 Laboratory Results 07/21/17 05:07 07/21/17 05:07 07/21/17 07/22/17 07/23/17 05:59 05:59 05:59 Intake Total 2100 350 Output Total 400 2200 Balance 1700 -1850 PT 13.3 SEC (12.0-15.0) 07/20/17 12:55 INR 1.02 (0.83-1.16) 07/20/17 12:55 - Physical Exam Constitutional: no apparent distress, appears nourished Eyes: PERRL, anicteric sclera Ears, Nose, Mouth, Throat: moist mucous membranes, hearing normal Cardiovascular: regular rate and rhythym, no murmur, rub, or gallop Respiratory: no respiratory distress, no rales or rhonchi Gastrointestinal: normoactive bowel sounds, soft, non-tender abdomen Genitourinary: no bladder fullness, No watts in urethra Skin: warm, normal color Musculoskeletal: full muscle strength, no muscle tenderness Neurologic: AAOx3, sensation intact bilaterally Psychiatric: interacting appropriately, not anxious ICD10 Worksheet Patient Problems: Problems Problem Status Onset Pancreatitis Acute Abdominal pain Acute Acute pancreatitis Acute Cyclic vomiting syndrome Acute Nausea & vomiting Acute Pancreatitis, acute Acute Vomiting Acute
--- NOTE | 2017-07-22 11:00 | GDS ---
[f rep st] DISCHARGE SUMMARY DISCHARGE DIAGNOSES: 1. Possible erfho-fu-hzllsns pancreatitis. 2. Abdominal pain. 3. Nausea. 4. History of cyclic vomiting syndrome, although I have a doubt about this diagnosis. 5. Benign prostatic hypertrophy. 6. Chronic back and abdominal pain. 7. History of appendectomy, cholecystectomy and tonsillectomy. HOSPITAL COURSE: Please see admission history and physical by Dr. Gómez Rice. The patient pre sented with abdominal pain. He had no peritoneal signs. No leukocytosis, was afebrile and not tachy cardic. His labs were notable for a modestly elevated lipase, lower than he has had in the past. Hi s diet was advanced the first hospital day. He was transitioned to oral narcotics. He is discharged home today. I actually suspect the patient has irritable bowel syndrome. I recommended he take lactulose. He do es acknowledge that he has some constipation from time to time. /[id number]/MODL
[2017-07-22 12:34] VITALS: BP 144/79; PULSE 50; RESP 18; TEMP 98.9; O2SAT 97
--- NOTE | 2017-07-22 17:46 | ASDISCHSUM ---
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 Pt admitted w/ N/V/abd pain w/ hx of chronic pancreatitis vs cyclic vomiting syndrome. Hx also includes BPH, chronic back/abd pain, appy, peggy and tonsillectomy. Pt has a hx of ETOH use, but hasn't had a drink in 10 yrs; currently uses Marijuana. Pt lives w/ his . Anticipate pt will likely d/c home independently when medically stable. CM will cont to follow. Date Signed: 07/21/2017 11:20 AM Electronically Signed By:Rosa Braxton RN [facility] CM Progress Note CM Note CM Note Notes: Reviewed chart re: d/c poc, pt's progress. Per CONDUCTOR FREIGHT notes, pt to discharge home independently w/ no identified needs and family support. No IM signed, pt admission < 24 hrs. Pt to f/u as directed. CM avail for any further issues or concerns. Date Signed: 07/22/2017 05:45 PM Electronically Signed By:Rosa Braxton RN Intervention Information
== END 2017-07-22 13:32 | disposition home or self-care (01) ==
LOC: F3E 14:58
PROVIDERS: ADMIT Student in an Organized Health Care Education/Training Program; ATTEND Internal Medicine
PROC: 3E0337Z Introduction of Electrolytic and Water Balance Substance into Peripheral Vein, Percutaneous Approach (ICD-10-PCS; principal; 2017-07-20)
DX: R10.13 Epigastric pain (principal); R11.2 Nausea with vomiting, unspecified; G43.A0 Cyclical vomiting, in migraine, not intractable; E86.9 Volume depletion, unspecified; G89.29 Other chronic pain; M54.9 Dorsalgia, unspecified; N40.0 Benign prostatic hyperplasia without lower urinary tract symptoms; Z87.891 Personal history of nicotine dependence; Z87.19 Personal history of other diseases of the digestive system
CPT/HCPCS: G0378 ×2; J1170; J1650; J1885; J2405; J2550